=== PATIENT | female | born 1935 | race Hispanic/Latino ===

== ENCOUNTER 2017-11-23 11:44 | Inpatient (IN) | payer BC, MEDICARE ==
[2017-11-23 12:05] VITALS: BMI 25.6
--- NOTE | 2017-11-23 14:49 | PCM.OPOC ---
Physiatry Overall Plan of Care - Overall Plan of Care Estimated Length of Stay in Weeks: 2 Rehab Impairment: Mobility, Gait, Balance, Coordination Etiologic Diagnosis: Cerebrovascular Accident Rehab/Medical Prognosis: Fair - Anticipated Interventions Physical Therapy:: Yes Occupational Therapy:: Yes Recreational Therapy:: Yes - Therapy Goals Bed Mobility: Independent Ambulation: Independent Functional Positional Changes:: Independent - Functional Outcomes Functional Outcomes: fair - Discharge Plan Identification of Barriers to Discharge: Cognition Discharge Destination: Home
--- NOTE | 2017-11-23 15:51 | CP.PCM.CON ---
History of Present Illness - History of Present Illness History of Present Illness: 82 year old female admitted to acute rehab with right sided weakness secondary to CVa with history of Cad, Htn, colitis Review of Systems - Musculoskeletal Musculoskeletal: Abnormal Gait, Limited Range of Motion, Muscle Weakness - Neurological Neurological: Abnormal Gait, Lack of Coordination Past Patient History - Past Social History Smoking Status: Never Smoked - CARDIAC Hx Cardiac Disorders: Yes (with stents x 2) Hx Hypertension: Yes - PULMONARY Hx Respiratory Disorders: No - NEUROLOGICAL Hx Neurological Disorder: No - HEENT Hx HEENT Problems: Yes Other/Comment: eye issues - RENAL Hx Chronic Kidney Disease: No - ENDOCRINE/METABOLIC Hx Endocrine Disorders: No - HEMATOLOGICAL/ONCOLOGICAL Hx Cancer: Yes (breast) - INTEGUMENTARY Hx Dermatological Problems: No - MUSCULOSKELETAL/RHEUMATOLOGICAL Hx Musculoskeletal Disorders: No Hx Falls: No - GASTROINTESTINAL Hx Gastrointestinal Disorders: Yes (Colitis) - GENITOURINARY/GYNECOLOGICAL Hx Genitourinary Disorders: No - PSYCHIATRIC Hx Psychophysiologic Disorder: No Hx Emotional Abuse: No Hx Physical Abuse: No Hx Substance Use: No - SURGICAL HISTORY Hx Surgeries: Yes (Right breast lumpectomy) Hx Coronary Stent: Yes (2 stents) - ANESTHESIA Hx Anesthesia: Yes Hx Anesthesia Reactions: No Hx Malignant Hyperthermia: No Meds Allergies/Adverse Reactions: Allergies Allergy/AdvReac Type Severity Reaction Status Date / Time Penicillins Allergy RASH Verified 11/20/17 20:05 - Medications Medications: Current Medications Aspirin (Ecotrin) 325 mg PO DAILY [facility] Atorvastatin Calcium (Lipitor) 20 mg PO HS [facility] Brimonidine Tartrate (Alphagan 0.2% Opht) 1 drop OU Q8 [facility] Clopidogrel Bisulfate (Plavix) 75 mg PO DAILY [facility] Furosemide (Lasix) 20 mg PO DAILY [facility] Home Med (Netarsudil Mesylate [Rhopressa]) 1 drop OS DAILY [facility] Home Med (Mesalamine [Lialda]) 1.2 gm PO BRK [facility] Insulin Human Regular (Humulin R) 0 units SC [facility] PRN Reason: Protocol Isosorbide Dinitrate (Isordil) 30 mg PO DAILY [facility] Latanoprost (Xalatan Opht) 1 drop OS HS [facility] Metoprolol Tartrate (Lopressor) 25 mg PO Q12 [facility] Physical Exam - Head Exam Head Exam: ATRAUMATIC, NORMAL INSPECTION, NORMOCEPHALIC - Eye Exam Eye Exam: EOMI, Normal appearance, PERRL Pupil Exam: NORMAL ACCOMODATION, PERRL - ENT Exam ENT Exam: Mucous Membranes Moist, Normal Exam - Neck Exam Neck exam: Positive for: Normal Inspection - Respiratory Exam Respiratory Exam: Clear to Auscultation Bilateral, NORMAL BREATHING PATTERN - Cardiovascular Exam Cardiovascular Exam: REGULAR RHYTHM - GI/Abdominal Exam GI & Abdominal Exam: Normal Bowel Sounds - Rectal Exam Rectal Exam: NORMAL INSPECTION - Exam External exam: NORMAL EXTERNAL EXAM - Extremities Exam Extremities exam: Positive for: normal inspection Additional comments: right leg weakness , mild tenderness in the right leg - Back Exam Back exam: NORMAL INSPECTION - Neurological Exam Neurological exam: CN II-XII Intact, Normal Gait, Oriented x3 - Psychiatric Exam Psychiatric exam: Normal Affect, Normal Mood - Skin Skin Exam: Dry, Intact, Normal Color Assessment & Plan (1) Ischemic stroke Assessment and Plan: plan for physical, occupational, rec and speech therapy for cognitive evaluation , range of motion, strengthening transfers and gait training. status post overall plan of care Status: Acute Priority: High (2) Newly diagnosed diabetes Status: Acute (3) TIA (transient ischemic attack) Status: Acute
[2017-11-23] MEDS: Insulin Regular 100 units/ml SC SCH ×2 (17:39→22:15)
--- NOTE | 2017-11-23 18:37 | US ---
Date of service: 11/23/2017 PROCEDURE: Right lower extremity venous duplex Doppler. HISTORY: PAIN AND SWELLING COMPARISON: None available. TECHNIQUE: Common femoral, superficial femoral, popliteal and posterior tibial veins were evaluated. Flow was assessed with color Doppler, compressibility, assessment of phasic flow and augmentation response. FINDINGS: COMMON FEMORAL VEIN: Unremarkable. SUPERFICIAL FEMORAL VEIN: Unremarkable. POPLITEAL VEIN: Unremarkable. POSTERIOR TIBIAL VEIN: Unremarkable. OTHER FINDINGS: None. IMPRESSION: No evidence of deep venous thrombosis in the right lower extremity.
[2017-11-23] MEDS: Brimonidine 0.2% 50 DROP/5 ML BOTTLE OU SCH (21:59)
[2017-11-23] MEDS: Latanoprost 0.005% Opht SOUTION OS SCH (22:11)
[2017-11-24 06:46] LABS: HEMOGLOBIN 14.7 g/dL (12.0-16.0); MEAN CELL VOLUME 94.1 fl (81.0-99.0); MEAN CORPUSCULAR HEMOGLOBIN 32.3 pg (27.0-31.0); MEAN CORPUSCULAR HGB CONC 34.3 g/dL (33.0-37.0); RBC 4.55 Mil/uL (3.80-5.20); RED CELL DISTRIBUTION WIDTH 13.7 % (11.5-14.5); WHITE BLOOD COUNT 7.1 K/uL (4.8-10.8)
[2017-11-24] MEDS: Brimonidine 0.2% 50 DROP/5 ML BOTTLE OU SCH ×3 (06:51→21:19)
[2017-11-24 07:04] LABS: ALB/GLOB RATIO 1.2 (1.0-2.1); ALBUMIN 3.5 g/dL (3.5-5.0); ALT/SGPT 36 U/L (9-52); AST/SGOT 28 U/L (14-36); BLOOD UREA NITROGEN 19 mg/dl (7-17); GFR NON-AFRICAN AMERICAN > 60
[2017-11-24] MEDS: Insulin Regular 100 units/ml SC SCH ×4 (07:45→21:16)
[2017-11-24] MEDS ORDERED: MESALAMINE 2.4 GM PO SCH (08:00)
[2017-11-24] MEDS: Aspirin 325 mg EC Tablets PO SCH (08:36)
[2017-11-24] MEDS: NETARSUDIL MESYLATE OS SCH (08:37)
[2017-11-24] MEDS: MESALAMINE 1.2 GM PO SCH (08:38)
--- NOTE | 2017-11-24 10:04 | CP.PCM.CON ---
History of Present Illness - History of Present Illness History of Present Illness: 82 yo female, with PMHx of CVA and HTN, seen and evaluated for painful, elongated dystrophic nails. She states that she had a stroke earlier in the week and cannot bend down to cut her toenails herself. Her nails have been causing pain in her shoes when she walks and does therapy. Patient ambulating in sneakers and compression socks. She denies any other pedal complaints at this time. Denies N/V/F/CP. PMHx: Pre-diabetic, CVA, HTN Social: Former tobacco use (1992) ALL: PCN Review of Systems - Review of Systems Review of Systems: As per HPI Past Patient History - Past Social History Smoking Status: Never Smoked - CARDIAC Hx Cardiac Disorders: Yes (with stents x 2) Hx Hypertension: Yes - PULMONARY Hx Respiratory Disorders: No - NEUROLOGICAL Hx Neurological Disorder: No - HEENT Hx HEENT Problems: Yes Other/Comment: eye issues - RENAL Hx Chronic Kidney Disease: No - ENDOCRINE/METABOLIC Hx Endocrine Disorders: No - HEMATOLOGICAL/ONCOLOGICAL Hx Cancer: Yes (breast) - INTEGUMENTARY Hx Dermatological Problems: No - MUSCULOSKELETAL/RHEUMATOLOGICAL Hx Musculoskeletal Disorders: No Hx Falls: No - GASTROINTESTINAL Hx Gastrointestinal Disorders: Yes (Colitis) - GENITOURINARY/GYNECOLOGICAL Hx Genitourinary Disorders: No - PSYCHIATRIC Hx Psychophysiologic Disorder: No Hx Emotional Abuse: No Hx Physical Abuse: No Hx Substance Use: No - SURGICAL HISTORY Hx Surgeries: Yes (Right breast lumpectomy) Hx Coronary Stent: Yes (2 stents) - ANESTHESIA Hx Anesthesia: Yes Hx Anesthesia Reactions: No Hx Malignant Hyperthermia: No Meds Allergies/Adverse Reactions: Allergies Allergy/AdvReac Type Severity Reaction Status Date / Time Penicillins Allergy RASH Verified 11/20/17 20:05 - Medications Medications: Current Medications Acetaminophen (Tylenol 325mg Tab) 650 mg PO Q6 PRN PRN Reason: pain scale 1-10 Aspirin (Ecotrin) 325 mg PO DAILY [facility] Last Admin: 11/24/17 08:36 Dose: 325 mg Atorvastatin Calcium (Lipitor) 20 mg PO HS [facility] Last Admin: 11/23/17 22:01 Dose: 20 mg Brimonidine Tartrate (Alphagan 0.2% Opht) 1 drop OU Q8 [facility] Last Admin: 11/24/17 06:51 Dose: 1 drop Clopidogrel Bisulfate (Plavix) 75 mg PO DAILY [facility] Last Admin: 11/24/17 08:37 Dose: 75 mg Furosemide (Lasix) 20 mg PO DAILY [facility] Last Admin: 11/24/17 08:41 Dose: 20 mg Home Med (Netarsudil Mesylate [Rhopressa]) 1 drop OS DAILY [facility] Last Admin: 11/24/17 08:37 Dose: 1 drop Home Med (Mesalamine [Lialda]) 1.2 gm PO BRK [facility] Last Admin: 11/24/17 08:38 Dose: 1.2 gm Insulin Human Regular (Humulin R) 0 units SC ACHS [facility] PRN Reason: Protocol Last Admin: 11/24/17 07:45 Dose: Not Given Isosorbide Dinitrate (Isordil) 30 mg PO DAILY [facility] Last Admin: 11/24/17 08:42 Dose: 30 mg Latanoprost (Xalatan Opht) 1 drop OS HS [facility] Last Admin: 11/23/17 22:11 Dose: 1 drop Metoprolol Tartrate (Lopressor) 25 mg PO Q12 [facility] Last Admin: 11/24/17 08:41 Dose: 25 mg Physical Exam - Constitutional Appears: Well, Non-toxic, No Acute Distress - Head Exam Head Exam: ATRAUMATIC, NORMOCEPHALIC - Extremities Exam Additional comments: Vascular: DP/PT 2/4 bilaterally, CFT <3 seconds to all digits, TG WNL, no edema to bilateral lower extremities Ortho: Pain to palpation of right medial nail border. MMT 4/5 Neuro: Gross and protective sensation intact bilaterally. Derm: Elongated, dystrophic, mycotic nails x10. No interdigital maceration, no open lesions, no erythema, no clinical signs of infection - Neurological Exam Neurological exam: Alert, Oriented x3 - Psychiatric Exam Psychiatric exam: Normal Affect, Normal Mood Results - Vital Signs Recent Vital Signs: Last Vital Signs Temp 98.5 F 11/24/17 08:49 Pulse 74 11/24/17 08:49 Resp 20 11/24/17 08:49 BP 157/80 H 11/24/17 08:49 Pulse Ox 97 11/24/17 08:49 - Labs Result Diagrams: 11/24/17 05:20 11/24/17 05:20 Labs: Laboratory Results - last 24 hr 08/11/23/17 11/24/17 16:23 21:35 05:20 WBC 7.1 RBC 4.55 Hgb 14.7 Hct 42.8 MCV 94.1 MCH 32.3 H MCHC 34.3 RDW 13.7 Plt Count 264 PT INR Sodium Potassium Chloride Carbon Dioxide Anion Gap BUN Creatinine Est GFR ( Amer) Est GFR (Non-Af Amer) POC Glucose (mg/dL) 130 H 130 H Random Glucose Calcium Total Bilirubin AST ALT Alkaline Phosphatase Total Protein Albumin Globulin Albumin/Globulin Ratio Vitamin B12 TSH 3rd Generation 11/24/17 11/24/17 11/24/17 05:20 05:20 06:56 WBC RBC Hgb Hct MCV MCH MCHC RDW Plt Count PT 11.0 INR 1.0 Sodium 139 Potassium 4.0 Chloride 107 Carbon Dioxide 24 Anion Gap 12 BUN 19 H Creatinine 0.7 Est GFR ( Amer) > 60 Est GFR (Non-Af Amer) > 60 POC Glucose (mg/dL) 123 H Random Glucose 124 H Calcium 9.0 Total Bilirubin 0.8 AST 28 ALT 36 Alkaline Phosphatase 56 Total Protein 6.4 Albumin 3.5 Globulin 2.9 Albumin/Globulin Ratio 1.2 Vitamin B12 915 TSH 3rd Generation 1.10 Assessment & Plan - Assessment and Plan (Free Text) Assessment: 82 yo female seen and evaluated for painful, elongated dystrophic nails. Plan: Patient seen and evaluated with all questions and concerns addressed Patient discussed in detail with Dr. Meyer Nails debrided with a large nail nipper x10 without incident Podiatry to s/o at this time; please reconsult as needed Thank you for the consult and allowing us to partake in the care of this patient - Date & Time Date: 11/24/17 Time: 10:37
--- NOTE | 2017-11-24 12:27 | PSY.TMCNF ---
Nursing - Vital Signs Vital Signs (Last 8 hours): Vital Signs 11/24/17 11/24/17 11/24/17 08:41 08:49 08:50 Temperature 98.5 F Pulse Rate 74 74 94 H Respiratory 20 Rate Blood Pressure 157/80 H 157/80 H O2 Sat by Pulse 97 Oximetry Pain: 0 - Medications/Other Issues Comment: To follow as per nutriton protocol - Bladder Management Bladder Pattern: Frequency Voiding Method: Toilet, Diaper - Bowel Management Bowel Pattern: Normal Physical Therapy - Transfers Sit to Stand: Verbal Cues, Contact Guard - Ambulation Level of Assistance: Verbal Cues, Contact Guard, Minimal Assistance Distance (ft.): 100 Assistive Devices: N/A, Single point cane - Stair Negotiation Stairs: Level of Assistance: Verbal Cues, Minimal Assistance Number of Stairs: 2 Stairs: Assistive Devices: Left Handrail, Right Handrail - Standing Balance Static Stand: Contact Guard Assist Dynamic Stand: Contact Guard Assist, Minimal Assistance - Provider Therapist: M License Number: 4 Occupational Therapy - Arousal/Attention/Orientation Patient Orientation: Person, Place, Time, Appropriate to Age, Appropriate to Situation Nutrition - Current Diet Current Diet/ Supplement/ Feedings: Moderate consistent CHO 2 gram Na diet - Appetite Percent Meal Consumed: 75-100% - Assessment/Goals/Time Frame Assessment/Goals/Time Frame: To follow as per nutriton protocol - Provider Provider: Denise Deleon RD Case Management - Discharge Plan Discharge Plan: Home with significant other/family Rehabilitation Plan - Treatment Plan Treatment Plan: Physical Therapy, Occupational Therapy, Dietary, Patient/Family Education - Recommendation Recommendation: Physical Therapy, Occupational Therapy, Dietary, Patient/Family Education - Discharge Plan Discharge to: Home
--- NOTE | 2017-11-24 14:04 | CP.PCM.PN ---
Subjective - Date & Time of Evaluation Date of Evaluation: 11/24/17 Time of Evaluation: 12:00 - Subjective Subjective: no acute complaints at present Objective - Vital Signs/Intake and Output Vital Signs (last 24 hours): Temp Pulse Resp BP Pulse Ox 98.5 F 94 H 20 157/80 H 97 11/24/17 08:49 11/24/17 08:50 11/24/17 08:49 11/24/17 08:49 11/24/17 08:49 - Medications Medications: Current Medications Acetaminophen (Tylenol 325mg Tab) 650 mg PO Q6 PRN PRN Reason: pain scale 1-10 Aspirin (Ecotrin) 325 mg PO DAILY [facility] Last Admin: 11/24/17 08:36 Dose: 325 mg Atorvastatin Calcium (Lipitor) 20 mg PO HS [facility] Last Admin: 11/23/17 22:01 Dose: 20 mg Brimonidine Tartrate (Alphagan 0.2% Opht) 1 drop OU Q8 [facility] Last Admin: 11/24/17 13:06 Dose: 1 drop Clopidogrel Bisulfate (Plavix) 75 mg PO DAILY [facility] Last Admin: 11/24/17 08:37 Dose: 75 mg Furosemide (Lasix) 20 mg PO DAILY [facility] Last Admin: 11/24/17 08:41 Dose: 20 mg Home Med (Netarsudil Mesylate [Rhopressa]) 1 drop OS DAILY [facility] Last Admin: 11/24/17 08:37 Dose: 1 drop Home Med (Mesalamine [Lialda]) 1.2 gm PO BRK [facility] Last Admin: 11/24/17 08:38 Dose: 1.2 gm Insulin Human Regular (Humulin R) 0 units SC ACHS [facility] PRN Reason: Protocol Last Admin: 11/24/17 12:05 Dose: Not Given Isosorbide Dinitrate (Isordil) 30 mg PO DAILY [facility] Last Admin: 11/24/17 08:42 Dose: 30 mg Latanoprost (Xalatan Opht) 1 drop OS HS [facility] Last Admin: 11/23/17 22:11 Dose: 1 drop Metoprolol Tartrate (Lopressor) 25 mg PO Q12 [facility] Last Admin: 11/24/17 08:41 Dose: 25 mg Pantoprazole Sodium (Protonix Ec Tab) 40 mg PO DAILY [facility] - Labs Labs: 11/24/17 05:20 11/24/17 05:20 PT 11.0 Seconds (9.8-13.1) 11/24/17 05:20 INR 1.0 11/24/17 05:20 - Head Exam Head Exam: ATRAUMATIC, NORMAL INSPECTION, NORMOCEPHALIC - Eye Exam Eye Exam: EOMI, Normal appearance, PERRL Pupil Exam: NORMAL ACCOMODATION - ENT Exam ENT Exam: Mucous Membranes Moist, Normal Exam - Neck Exam Neck Exam: Full ROM, Normal Inspection - Respiratory Exam Respiratory Exam: NORMAL BREATHING PATTERN - Cardiovascular Exam Cardiovascular Exam: REGULAR RHYTHM - GI/Abdominal Exam GI & Abdominal Exam: Soft, Normal Bowel Sounds - Rectal Exam Rectal Exam: NORMAL INSPECTION - Exam External exam: NORMAL EXTERNAL EXAM - Extremities Exam Extremities Exam: Full ROM, Normal Capillary Refill - Back Exam Back Exam: NORMAL INSPECTION - Neurological Exam Neurological Exam: Alert, Awake - Psychiatric Exam Psychiatric exam: Normal Affect, Normal Mood - Skin Skin Exam: Dry, Intact, Normal Color Assessment and Plan (1) Ischemic stroke Assessment & Plan: plan fo rpt, ot, rec therapy duplex scam negative dc planning Status: Acute (2) Newly diagnosed diabetes Status: Acute (3) TIA (transient ischemic attack) Status: Acute
--- NOTE | 2017-11-24 19:23 | CP.PCM.HP ---
History of Present Illness - History of Present Illness History of Present Illness: CC: Left Sided Weakness HPI: An 82-year-old woman with a past medical history of hypertension, breast cancer , colitis, facial nerve palsy, and CAD (s/p 2 stents), who presented to the ED with complaints of slurred speech that started the morning of Presentation to the ER. Her symptoms were improving when she presented and did not require tPA. Her initial NIHSS was 2. MRI of the brain was consistent with a small left mid-pontine acute Ischemic stroke. 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 Patient was sent to [facility] for Acute Rehab with Occupationa and Physical therapy. During the Work Up for ACute CAv, 2D echo showed Wall Motion Abnormalities and Cardiomyopathy. patient is in BB but offered DIDIER Inhibitor but patient declined until her Nursing Program Coordinator of 20years approved. Nursing Program Coordinator from [facility] facility consulted. Present on Admission - Present on Admission Any Indicators Present on Admission: Yes Review of Systems - Review of Systems All systems: reviewed and no additional remarkable complaints except Review of Systems: As Per HPI Past Patient History - Past Medical History & Family History Past Medical History?: Yes Past Family History: Reviewed and not pertinent - Past Social History Smoking Status: Never Smoked Alcohol: None Drugs: Denies - CARDIAC Hx Cardiac Disorders: Yes Hx Hypertension: Yes - PULMONARY Hx Respiratory Disorders: No - NEUROLOGICAL Hx Neurological Disorder: No - HEENT Hx HEENT Problems: Yes Other/Comment: eye issues - RENAL Hx Chronic Kidney Disease: No - ENDOCRINE/METABOLIC Hx Endocrine Disorders: No - HEMATOLOGICAL/ONCOLOGICAL Hx Cancer: Yes (breast) - INTEGUMENTARY Hx Dermatological Problems: No - MUSCULOSKELETAL/RHEUMATOLOGICAL Hx Musculoskeletal Disorders: No Hx Falls: No - GASTROINTESTINAL Hx Gastrointestinal Disorders: Yes (Colitis) - GENITOURINARY/GYNECOLOGICAL Hx Genitourinary Disorders: No - PSYCHIATRIC Hx Psychophysiologic Disorder: No Hx Emotional Abuse: No Hx Physical Abuse: No Hx Substance Use: No - SURGICAL HISTORY Hx Surgeries: Yes (Right breast lumpectomy) Hx Coronary Stent: Yes (2 stents) - ANESTHESIA Hx Anesthesia: Yes Hx Anesthesia Reactions: No Hx Malignant Hyperthermia: No Meds Allergies/Adverse Reactions: Allergies Allergy/AdvReac Type Severity Reaction Status Date / Time Penicillins Allergy RASH Verified 11/20/17 20:05 Physical Exam - Constitutional Appears: Well, No Acute Distress - Head Exam Head Exam: ATRAUMATIC, NORMAL INSPECTION, NORMOCEPHALIC - Eye Exam Eye Exam: EOMI, Normal appearance, PERRL Pupil Exam: NORMAL ACCOMODATION, PERRL - ENT Exam ENT Exam: Mucous Membranes Moist, Normal Exam - Neck Exam Neck exam: Positive for: Normal Inspection - Respiratory Exam Respiratory Exam: Clear to Auscultation Bilateral, NORMAL BREATHING PATTERN - Cardiovascular Exam Cardiovascular Exam: REGULAR RHYTHM, +S1, +S2 - GI/Abdominal Exam GI & Abdominal Exam: Normal Bowel Sounds, Soft. absent: Tenderness - Extremities Exam Extremities exam: Positive for: normal capillary refill - Back Exam Back exam: NORMAL INSPECTION - Neurological Exam Neurological exam: Abnormal Gait, Alert, CN II-XII Intact, Motor Sensory Deficit , Normal Gait, Oriented x3, Reflexes Normal Additional comments: Right Extremities Power 4/5 - Psychiatric Exam Psychiatric exam: Normal Affect, Normal Mood - Skin Skin Exam: Dry, Intact, Normal Color, Warm Results - Vital Signs Recent Vital Signs: Last Vital Signs Temp 98.5 F 11/24/17 08:49 Pulse 94 H 11/24/17 08:50 Resp 20 11/24/17 08:49 BP 157/80 H 11/24/17 08:49 Pulse Ox 97 11/24/17 08:49 - Labs Result Diagrams: 11/24/17 05:20 11/24/17 05:20 Labs: Laboratory Results - last 24 hr 11/23/17 11/24/17 11/24/17 21:35 05:20 05:20 WBC 7.1 RBC 4.55 Hgb 14.7 Hct 42.8 MCV 94.1 MCH 32.3 H MCHC 34.3 RDW 13.7 Plt Count 264 PT INR Sodium 139 Potassium 4.0 Chloride 107 Carbon Dioxide 24 Anion Gap 12 BUN 19 H Creatinine 0.7 Est GFR ( Amer) > 60 Est GFR (Non-Af Amer) > 60 POC Glucose (mg/dL) 130 H Random Glucose 124 H Calcium 9.0 Total Bilirubin 0.8 AST 28 ALT 36 Alkaline Phosphatase 56 Total Protein 6.4 Albumin 3.5 Globulin 2.9 Albumin/Globulin Ratio 1.2 Vitamin B12 915 TSH 3rd Generation 1.10 11/24/17 11/24/17 11/24/17 05:20 06:56 17:27 WBC RBC Hgb Hct MCV MCH MCHC RDW Plt Count PT 11.0 INR 1.0 Sodium Potassium Chloride Carbon Dioxide Anion Gap BUN Creatinine Est GFR ( Amer) Est GFR (Non-Af Amer) POC Glucose (mg/dL) 123 H 144 H Random Glucose Calcium Total Bilirubin AST ALT Alkaline Phosphatase Total Protein Albumin Globulin Albumin/Globulin Ratio Vitamin B12 TSH 3rd Generation - Imaging and Cardiology MRI - head Status: Report reviewed by me Additional comment: MRI BRAIN WITHOUT CONTRAST HISTORY: r/o CVA COMPARISON: Comparison made with prior CT scan of the brain 02/2018. TECHNIQUE: Multiplanar, multisequence MR images of the brain were obtained without intravenous contrast enhancement. FINDINGS: HEMORRHAGE: No acute parenchymal, subarachnoid nor extra-axial hemorrhage. No evidence of hemosiderin deposition is identified on gradient echo weighted sequence. DWI: There is a small elliptical shaped acute infarct in the left parasagittal midpons BRAIN PARENCHYMA: Mild -moderate diffuse/ confluent chronic periventricular white matter ischemic changes extending peripherally into the deep and subcortical white matter both cerebral hemispheres as well as multiple more discrete chronic appearing lacunar type infarcts scattered about deep and subcortical white matter, both basal nuclei and both cerebellar hemispheres also seen to better advantage on the current exam. There also appear to be a 1 or 2 tiny chronic appearing right- sided pontine lacunar type infarcts. Moderate generalized volume loss. VENTRICLES: No obstructive hydrocephalus. CRANIUM: Unremarkable. ORBITS: Orbits and contents grossly unremarkable. PARANASAL SINUSES/MASTOIDS: Clear VASCULAR SYSTEM: Visualized major vascular flow voids at skull base patent. OTHER FINDINGS: None. IMPRESSION: Small elliptical shaped acute infarct left mid albaro. Mild -moderate diffuse/ confluent chronic periventricular white matter ischemic changes extending peripherally into the deep and subcortical white matter both cerebral hemispheres as well as multiple more discrete chronic appearing lacunar type infarcts scattered about deep and subcortical white matter, both basal nuclei and both cerebellar hemispheres also seen to better advantage on the current exam. There also appear to be a 1 or 2 tiny chronic appearing right-sided pontine lacunar type infarcts. Moderate generalized volume loss. No acute intracranial hemorrhage. 2 [facility] Nurse Amy informed these findings at approximately 2:20 p.m. with written down and read back verification. Echocardiogram Additional comment: Done on 11/22/2017: Mild to Moderate Concentric LVH Proximal Septal Thickening Noted The Systolic Function is mederately Impaired EF 25-30% Assessment & Plan (1) Ischemic stroke Assessment and Plan: Continue Plavix/Statin PT/OT Syrup Maker Cook Consulted Status: Acute Priority: High (2) HTN (hypertension) Status: Chronic Priority: Low (3) CAD (coronary artery disease) Assessment and Plan: Ischemic Cardiomyopathy Continue Statin and BB Offered ARB or ACEI but patient Refused Attempted to reach her Nursing Program Coordinator Dr. Dupont but the covering Nursing Program Coordinator responded but does not know the patient well and her buffing machine operator semiautomatic will make the decision as an outpatient if patient refuses. so losartan started and D/c Cardiology Consult with . Status: Chronic Priority: Low (4) Newly diagnosed diabetes Status: Chronic Priority: Low
[2017-11-24] MEDS: Latanoprost 0.005% Opht SOUTION OS SCH (21:20)
[2017-11-25] MEDS: Brimonidine 0.2% 50 DROP/5 ML BOTTLE OU SCH ×3 (07:07→21:34)
[2017-11-25] MEDS: Insulin Regular 100 units/ml SC SCH ×4 (07:07→21:30)
[2017-11-25] MEDS: Aspirin 325 mg EC Tablets PO SCH (08:44)
[2017-11-25] MEDS: Pantoprazole 40 mg EC Tab PO SCH (08:44)
[2017-11-25] MEDS: NETARSUDIL MESYLATE OS SCH (08:45)
[2017-11-25] MEDS: MESALAMINE 1.2 GM PO SCH (08:45)
--- NOTE | 2017-11-25 09:28 | CP.PCM.CON ---
History of Present Illness - History of Present Illness History of Present Illness: Ms. Prather is a 82-year-old woman with a past medical history of hypertension, breast cancer, colitis, facial nerve palsy, and CAD (s/p 2 stents) , who presented to the ED on 11/21/2017 with complaints of slurred speech, while in the hospital her symptoms improved. Her initial NIHSS was 2. She was not a candidate for IV tPA upon admission. Initial CT scan of the head did not show any acute findings. MRI of the brain was consistent with a small left mid- pontine acute ischemic stroke. 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 She was stabilized and transferred to acute rehab. Currently, she is receiving PT/OT and speech therapy. Past Patient History - Past Social History Smoking Status: Never Smoked - CARDIAC Hx Cardiac Disorders: Yes Hx Hypertension: Yes - PULMONARY Hx Respiratory Disorders: No - NEUROLOGICAL Hx Neurological Disorder: No - HEENT Hx HEENT Problems: Yes Other/Comment: eye issues - RENAL Hx Chronic Kidney Disease: No - ENDOCRINE/METABOLIC Hx Endocrine Disorders: No - HEMATOLOGICAL/ONCOLOGICAL Hx Cancer: Yes (breast) - INTEGUMENTARY Hx Dermatological Problems: No - MUSCULOSKELETAL/RHEUMATOLOGICAL Hx Musculoskeletal Disorders: No Hx Falls: No - GASTROINTESTINAL Hx Gastrointestinal Disorders: Yes (Colitis) - GENITOURINARY/GYNECOLOGICAL Hx Genitourinary Disorders: No - PSYCHIATRIC Hx Psychophysiologic Disorder: No Hx Emotional Abuse: No Hx Physical Abuse: No Hx Substance Use: No - SURGICAL HISTORY Hx Surgeries: Yes (Right breast lumpectomy) Hx Coronary Stent: Yes (2 stents) - ANESTHESIA Hx Anesthesia: Yes Hx Anesthesia Reactions: No Hx Malignant Hyperthermia: No Meds Allergies/Adverse Reactions: Allergies Allergy/AdvReac Type Severity Reaction Status Date / Time Penicillins Allergy RASH Verified 11/20/17 20:05 - Medications Medications: Current Medications Acetaminophen (Tylenol 325mg Tab) 650 mg PO Q6 PRN PRN Reason: pain scale 1-10 Aspirin (Ecotrin) 325 mg PO DAILY [facility] Last Admin: 11/25/17 08:44 Dose: 325 mg Atorvastatin Calcium (Lipitor) 20 mg PO HS [facility] Last Admin: 11/24/17 21:19 Dose: 20 mg Brimonidine Tartrate (Alphagan 0.2% Opht) 1 drop OU Q8 [facility] Last Admin: 11/25/17 07:07 Dose: 1 drop Clopidogrel Bisulfate (Plavix) 75 mg PO DAILY [facility] Last Admin: 11/25/17 08:45 Dose: 75 mg Furosemide (Lasix) 20 mg PO DAILY [facility] Last Admin: 11/25/17 08:44 Dose: 20 mg Home Med (Netarsudil Mesylate [Rhopressa]) 1 drop OS DAILY [facility] Last Admin: 11/25/17 08:45 Dose: 1 drop Home Med (Mesalamine [Lialda]) 1.2 gm PO BRK [facility] Last Admin: 11/25/17 08:45 Dose: 1.2 gm Insulin Human Regular (Humulin R) 0 units SC [facility] PRN Reason: Protocol Last Admin: 11/25/17 07:07 Dose: Not Given Isosorbide Dinitrate (Isordil) 30 mg PO DAILY [facility] Last Admin: 11/25/17 08:44 Dose: 30 mg Latanoprost (Xalatan Opht) 1 drop OS HS [facility] Last Admin: 11/24/17 21:20 Dose: 1 drop Losartan Potassium (Cozaar) 25 mg PO DAILY [facility] Last Admin: 11/25/17 08:41 Dose: Not Given Metoprolol Tartrate (Lopressor) 25 mg PO Q12 [facility] Last Admin: 11/25/17 08:45 Dose: 25 mg Pantoprazole Sodium (Protonix Ec Tab) 40 mg PO DAILY [facility] Last Admin: 11/25/17 08:44 Dose: 40 mg Physical Exam - Constitutional Appears: No Acute Distress - Head Exam Head Exam: NORMAL INSPECTION - Eye Exam Eye Exam: EOMI, Normal appearance, PERRL Pupil Exam: PERRL - ENT Exam ENT Exam: Mucous Membranes Moist - Neck Exam Neck exam: Positive for: Normal Inspection - Respiratory Exam Respiratory Exam: Clear to Auscultation Bilateral, NORMAL BREATHING PATTERN - Cardiovascular Exam Cardiovascular Exam: REGULAR RHYTHM - GI/Abdominal Exam GI & Abdominal Exam: Normal Bowel Sounds, Soft. absent: Tenderness - Extremities Exam Extremities exam: Positive for: normal inspection Additional comments: weak lower extremities - Neurological Exam Neurological exam: Alert, CN II-XII Intact, Oriented x3, Reflexes Normal - Expanded Neurological Exam Expanded Patient oriented to: person, place, time Speech: Slurred Speech (minimally) Cranial nerves: EOM's Intact: Normal, Facial Palsey w/o Forehead Movement: Normal, Facial Sensation: Normal, Gag Reflex: Normal, Nystagmus: Normal, Tongue Deviation: Normal Cerebellar Function: Finger to Nose: Normal, Heel to Miller: Normal Upper motor neuron: Babinski Sign: Normal, Quincy Neglect: Normal, Pronator Drift : Normal Sensory exam: Lower Extremity 2 Point Discrimination: Normal, Lower Extremity Light Touch: Normal, Lower Extremity Pin Prick: Normal, Lower Extremity Temperature: Normal, Upper Extremity 2 Point Discrimination: Normal, Upper Extremity Light Touch: Normal, Upper Extremity Pin Prick: Normal, Upper Extremity Temperature: Normal Neuro motor strength exam: Left Upper Extremity: 5, Right Upper Extremity: 4, Left Lower Extremity: 4, Right Lower Extremity: 4 Results - Vital Signs Recent Vital Signs: Last Vital Signs Temp 97.5 F L 11/24/17 19:54 Pulse 85 11/25/17 08:45 Resp 20 11/24/17 19:54 BP 127/65 11/25/17 08:45 Pulse Ox 99 11/24/17 19:54 - Labs Result Diagrams: 11/24/17 05:20 11/24/17 05:20 Labs: Laboratory Results - last 24 hr 11/24/17 11/24/17 11/25/17 17:27 21:03 06:26 POC Glucose (mg/dL) 144 H 110 110 Assessment & Plan (1) Ischemic stroke Assessment and Plan: 82-year-old woman with a past medical history of hypertension, breast cancer, colitis, facial nerve palsy, and CAD (s/p 2 stents), who presented to the ED on 11/21/2017 with complaints of slurred speech, while in the hospital her symptoms improved. Case discussed with Dr. Ruiz, recommend the following 1. PT/OT, STeval and treatment 2. Blood pressure and glycemic control, hydration 3. Continue aspirin 325 mg PO daily and plavix 75 mg PO daily 4. Continue statin of lipitor 20 mg PO daily to keep her LDL < 70. 5. Case management consult. Thank you Status: Acute Priority: High
--- NOTE | 2017-11-25 21:30 | CP.PCM.CON ---
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 Jo from [place] [facility] who recently had a acute CVA she was talking on the phone with 1 of her daughters in [place] who noted that her speech is somewhat gargled the subsequent day she was talking to another daughter in [place] who called the EMS and brought her to the emergency room at [facility] where she was diagnosed with a new onset CVA/TIA. She has known history of coronary artery disease had an acute myocardial infarction in her 20s which she attributes was told to her was a combination of smoking and oral contraceptive therapy subsequently 20 years data back in late she 89 to be precise had a recurrent acute myocardial infarction at which time she had [address] Jo she was initiated on Plavix after her recent acute CVA has been maintained on beta-blockers statins and arms. She was seen by Dr. Jo about 6 months ago at which time she had ischemic evaluation according to her remains clinically asymptomatic with no active ischemic's ongoing symptoms of coronary artery disease. Review of Systems - Review of Systems Systems not reviewed;Unavailable: Acuity of Condition - Constitutional Constitutional: As Per HPI - EENT Eyes: As Per HPI Ears: As Per HPI Nose/Mouth/Throat: As Per HPI - Breasts Breasts: As Per HPI - Cardiovascular Cardiovascular: As Per HPI - Respiratory Respiratory: As Per HPI - Gastrointestinal Gastrointestinal: As Per HPI - Genitourinary Genitourinary: As Per HPI - Reproductive: Female Reproductive:Female: As Per HPI - Menstruation Menstruation: As Per HPI - Musculoskeletal Musculoskeletal: As Per HPI - Integumentary Integumentary: As Per HPI - Neurological Neurological: As Per HPI - Psychiatric Psychiatric: As Per HPI - Endocrine Endocrine: As Per HPI - Hematologic/Lymphatic Hematologic: As Per HPI Past Patient History - Past Social History Smoking Status: Never Smoked - CARDIAC Hx Cardiac Disorders: Yes Hx Hypertension: Yes - PULMONARY Hx Respiratory Disorders: No - NEUROLOGICAL Hx Neurological Disorder: No - HEENT Hx HEENT Problems: Yes Other/Comment: eye issues - RENAL Hx Chronic Kidney Disease: No - ENDOCRINE/METABOLIC Hx Endocrine Disorders: No - HEMATOLOGICAL/ONCOLOGICAL Hx Cancer: Yes (breast) - INTEGUMENTARY Hx Dermatological Problems: No - MUSCULOSKELETAL/RHEUMATOLOGICAL Hx Musculoskeletal Disorders: No Hx Falls: No - GASTROINTESTINAL Hx Gastrointestinal Disorders: Yes (Colitis) - GENITOURINARY/GYNECOLOGICAL Hx Genitourinary Disorders: No - PSYCHIATRIC Hx Psychophysiologic Disorder: No Hx Emotional Abuse: No Hx Physical Abuse: No Hx Substance Use: No - SURGICAL HISTORY Hx Surgeries: Yes (Right breast lumpectomy) Hx Coronary Stent: Yes (2 stents) - ANESTHESIA Hx Anesthesia: Yes Hx Anesthesia Reactions: No Hx Malignant Hyperthermia: No Meds Allergies/Adverse Reactions: Allergies Allergy/AdvReac Type Severity Reaction Status Date / Time Penicillins Allergy RASH Verified 11/20/17 20:05 - Medications Medications: Current Medications Acetaminophen (Tylenol 325mg Tab) 650 mg PO Q6 PRN PRN Reason: pain scale 1-10 Aspirin (Ecotrin) 325 mg PO DAILY [facility] Last Admin: 11/25/17 08:44 Dose: 325 mg Atorvastatin Calcium (Lipitor) 20 mg PO HS [facility] Last Admin: 11/24/17 21:19 Dose: 20 mg Brimonidine Tartrate (Alphagan 0.2% Opht) 1 drop OU Q8 [facility] Last Admin: 11/25/17 13:51 Dose: 1 drop Clopidogrel Bisulfate (Plavix) 75 mg PO DAILY [facility] Last Admin: 11/25/17 08:45 Dose: 75 mg Furosemide (Lasix) 20 mg PO DAILY [facility] Last Admin: 11/25/17 08:44 Dose: 20 mg Home Med (Netarsudil Mesylate [Rhopressa]) 1 drop OS DAILY [facility] Last Admin: 11/25/17 08:45 Dose: 1 drop Home Med (Mesalamine [Lialda]) 1.2 gm PO BRK [facility] Last Admin: 11/25/17 08:45 Dose: 1.2 gm Insulin Human Regular (Humulin R) 0 units SC ACHS [facility] PRN Reason: Protocol Last Admin: 11/25/17 16:42 Dose: Not Given Isosorbide Dinitrate (Isordil) 30 mg PO DAILY [facility] Last Admin: 11/25/17 08:44 Dose: 30 mg Latanoprost (Xalatan Opht) 1 drop OS HS [facility] Last Admin: 11/24/17 21:20 Dose: 1 drop Losartan Potassium (Cozaar) 25 mg PO DAILY [facility] Last Admin: 11/25/17 08:41 Dose: Not Given Metoprolol Tartrate (Lopressor) 25 mg PO Q12 [facility] Last Admin: 11/25/17 08:45 Dose: 25 mg Pantoprazole Sodium (Protonix Ec Tab) 40 mg PO DAILY [facility] Last Admin: 11/25/17 08:44 Dose: 40 mg Physical Exam - Constitutional Appears: Well - Head Exam Head Exam: ATRAUMATIC, NORMAL INSPECTION, NORMOCEPHALIC - Eye Exam Eye Exam: EOMI, Normal appearance, PERRL Pupil Exam: NORMAL ACCOMODATION, PERRL - ENT Exam ENT Exam: Mucous Membranes Moist, Normal Exam - Neck Exam Neck exam: Positive for: Normal Inspection - Respiratory Exam Respiratory Exam: Clear to Auscultation Bilateral, NORMAL BREATHING PATTERN - Cardiovascular Exam Cardiovascular Exam: REGULAR RHYTHM - GI/Abdominal Exam GI & Abdominal Exam: Normal Bowel Sounds, Soft. absent: Tenderness - Rectal Exam Rectal Exam: NORMAL INSPECTION - Exam Exam: Circumcision, NORMAL INSPECTION External exam: NORMAL EXTERNAL EXAM Speculum exam: NORMAL SPECULUM EXAM Bimanual exam: NORMAL BIMANUAL EXAM - Extremities Exam Extremities exam: Positive for: normal inspection - Back Exam Back exam: NORMAL INSPECTION - Neurological Exam Neurological exam: Alert, CN II-XII Intact, Normal Gait, Oriented x3, Reflexes Normal - Psychiatric Exam Psychiatric exam: Normal Affect, Normal Mood - Skin Skin Exam: Dry, Intact, Normal Color, Warm Results - Vital Signs Recent Vital Signs: Last Vital Signs Temp 97.9 F 11/25/17 20:09 Pulse 67 11/25/17 20:09 Resp 18 11/25/17 20:09 BP 135/63 11/25/17 20:09 Pulse Ox 99 11/25/17 20:09 - Labs Result Diagrams: 11/24/17 05:20 11/24/17 05:20 Labs: Laboratory Results - last 24 hr 11/24/17 11/25/17 11/25/17 21:03 06:26 12:03 POC Glucose (mg/dL) 110 110 127 H 11/25/17 16:38 POC Glucose (mg/dL) 96 Assessment & Plan (1) CAD (coronary artery disease) Assessment and Plan: hx of stents done in 1996 followed by from [facility] clinically stable with no ischemic sx recent evalatuion done by at [facility] was -ve according to her cont dapt cont statins cont bb Status: Chronic (2) HTN (hypertension) Assessment and Plan: cont bb and arb Status: Acute (3) Ischemic stroke Assessment and Plan: etiology ? thromboembolic vs ischemic will discuss with neurology if needs further evaluation no arrhythmias as per hx Status: Acute Priority: High (4) TIA (transient ischemic attack) Status: Acute
[2017-11-25] MEDS: Latanoprost 0.005% Opht SOUTION OS SCH (21:37)
--- NOTE | 2017-11-26 04:49 | CP.PCM.PN ---
Subjective - Date & Time of Evaluation Date of Evaluation: 11/25/17 Time of Evaluation: 22:40 Objective - Vital Signs/Intake and Output Vital Signs (last 24 hours): Temp Pulse Resp BP Pulse Ox 97.9 F 80 18 142/64 99 11/25/17 20:09 11/25/17 21:33 11/25/17 20:09 11/25/17 21:33 11/25/17 20:09 - Medications Medications: Current Medications Acetaminophen (Tylenol 325mg Tab) 650 mg PO Q6 PRN PRN Reason: pain scale 1-10 Aspirin (Ecotrin) 325 mg PO DAILY [facility] Last Admin: 11/25/17 08:44 Dose: 325 mg Atorvastatin Calcium (Lipitor) 20 mg PO HS [facility] Last Admin: 11/25/17 21:33 Dose: 20 mg Brimonidine Tartrate (Alphagan 0.2% Opht) 1 drop OU Q8 [facility] Last Admin: 11/25/17 21:34 Dose: 1 drop Clopidogrel Bisulfate (Plavix) 75 mg PO DAILY [facility] Last Admin: 11/25/17 08:45 Dose: 75 mg Furosemide (Lasix) 20 mg PO DAILY [facility] Last Admin: 11/25/17 08:44 Dose: 20 mg Home Med (Netarsudil Mesylate [Rhopressa]) 1 drop OS DAILY [facility] Last Admin: 11/25/17 08:45 Dose: 1 drop Home Med (Mesalamine [Lialda]) 1.2 gm PO BRK [facility] Last Admin: 11/25/17 08:45 Dose: 1.2 gm Insulin Human Regular (Humulin R) 0 units SC ACHS [facility] PRN Reason: Protocol Last Admin: 11/25/17 21:30 Dose: Not Given Isosorbide Dinitrate (Isordil) 30 mg PO DAILY [facility] Last Admin: 11/25/17 08:44 Dose: 30 mg Latanoprost (Xalatan Opht) 1 drop OS HS [facility] Last Admin: 11/25/17 21:37 Dose: 1 drop Losartan Potassium (Cozaar) 25 mg PO DAILY [facility] Last Admin: 11/25/17 08:41 Dose: Not Given Metoprolol Tartrate (Lopressor) 25 mg PO Q12 [facility] Last Admin: 11/25/17 21:33 Dose: 25 mg Pantoprazole Sodium (Protonix Ec Tab) 40 mg PO DAILY [facility] Last Admin: 11/25/17 08:44 Dose: 40 mg - Labs Labs: 11/24/17 05:20 11/24/17 05:20 PT 11.0 Seconds (9.8-13.1) 11/24/17 05:20 INR 1.0 11/24/17 05:20
[2017-11-26] MEDS: Brimonidine 0.2% 50 DROP/5 ML BOTTLE OU SCH ×3 (05:19→21:46)
--- NOTE | 2017-11-26 06:42 | CP.PCM.PN ---
Subjective - Date & Time of Evaluation Date of Evaluation: 11/26/17 Time of Evaluation: 17:43 - Subjective Subjective: no events overnight Objective - Vital Signs/Intake and Output Vital Signs (last 24 hours): Temp Pulse Resp BP Pulse Ox 97.9 F 80 18 142/64 99 11/25/17 20:09 11/25/17 21:33 11/25/17 20:09 11/25/17 21:33 11/25/17 20:09 - Medications Medications: Current Medications Acetaminophen (Tylenol 325mg Tab) 650 mg PO Q6 PRN PRN Reason: pain scale 1-10 Aspirin (Ecotrin) 325 mg PO DAILY [facility] Last Admin: 11/25/17 08:44 Dose: 325 mg Atorvastatin Calcium (Lipitor) 20 mg PO HS [facility] Last Admin: 11/25/17 21:33 Dose: 20 mg Brimonidine Tartrate (Alphagan 0.2% Opht) 1 drop OU Q8 [facility] Last Admin: 11/26/17 05:19 Dose: 1 drop Clopidogrel Bisulfate (Plavix) 75 mg PO DAILY [facility] Last Admin: 11/25/17 08:45 Dose: 75 mg Furosemide (Lasix) 20 mg PO DAILY [facility] Last Admin: 11/25/17 08:44 Dose: 20 mg Home Med (Netarsudil Mesylate [Rhopressa]) 1 drop OS DAILY [facility] Last Admin: 11/25/17 08:45 Dose: 1 drop Home Med (Mesalamine [Lialda]) 1.2 gm PO BRK [facility] Last Admin: 11/25/17 08:45 Dose: 1.2 gm Insulin Human Regular (Humulin R) 0 units SC [facility] PRN Reason: Protocol Last Admin: 11/25/17 21:30 Dose: Not Given Isosorbide Dinitrate (Isordil) 30 mg PO DAILY [facility] Last Admin: 11/25/17 08:44 Dose: 30 mg Latanoprost (Xalatan Opht) 1 drop OS HS [facility] Last Admin: 11/25/17 21:37 Dose: 1 drop Losartan Potassium (Cozaar) 25 mg PO DAILY [facility] Last Admin: 11/25/17 08:41 Dose: Not Given Metoprolol Tartrate (Lopressor) 25 mg PO Q12 [facility] Last Admin: 11/25/17 21:33 Dose: 25 mg Pantoprazole Sodium (Protonix Ec Tab) 40 mg PO DAILY [facility] Last Admin: 11/25/17 08:44 Dose: 40 mg - Labs Labs: 11/24/17 05:20 11/24/17 05:20 PT 11.0 Seconds (9.8-13.1) 11/24/17 05:20 INR 1.0 11/24/17 05:20 - Constitutional Appears: Well - Head Exam Head Exam: ATRAUMATIC, NORMAL INSPECTION, NORMOCEPHALIC - Eye Exam Eye Exam: EOMI, Normal appearance, PERRL Pupil Exam: NORMAL ACCOMODATION, PERRL - ENT Exam ENT Exam: Mucous Membranes Moist, Normal Exam - Neck Exam Neck Exam: Full ROM, Normal Inspection. absent: Lymphadenopathy - Respiratory Exam Respiratory Exam: Clear to Ausculation Bilateral, NORMAL BREATHING PATTERN - Cardiovascular Exam Cardiovascular Exam: REGULAR RHYTHM, +S1, +S2, Murmur - GI/Abdominal Exam GI & Abdominal Exam: Soft, Normal Bowel Sounds. absent: Tenderness - Extremities Exam Extremities Exam: Full ROM, Normal Capillary Refill, Normal Inspection. absent : Joint Swelling, Pedal Edema - Back Exam Back Exam: NORMAL INSPECTION - Neurological Exam Neurological Exam: Alert, Awake, CN II-XII Intact, Normal Gait, Oriented x3 - Psychiatric Exam Psychiatric exam: Normal Affect, Normal Mood - Skin Skin Exam: Dry, Intact, Normal Color, Warm Assessment and Plan (1) CAD (coronary artery disease) Assessment & Plan: stable cont asa, plavix cont bb Status: Chronic (2) HTN (hypertension) Status: Acute (3) Ischemic stroke Status: Acute (4) TIA (transient ischemic attack) Status: Acute
[2017-11-26] MEDS: Insulin Regular 100 units/ml SC SCH ×4 (07:49→21:46)
[2017-11-26] MEDS: Aspirin 325 mg EC Tablets PO SCH (08:21)
[2017-11-26] MEDS: MESALAMINE 1.2 GM PO SCH (08:21)
[2017-11-26] MEDS: NETARSUDIL MESYLATE OS SCH (08:21)
[2017-11-26] MEDS: Pantoprazole 40 mg EC Tab PO SCH (08:22)
--- NOTE | 2017-11-26 09:01 | CP.PCM.PN ---
<Sarah Pink - Last Filed: 11/26/17 08:58> Subjective - Date & Time of Evaluation Date of Evaluation: 11/26/17 Time of Evaluation: 08:58 - Subjective Subjective: Ms. Prather was seen and examined at the bedside. She remains alert, oriented in all spheres. She denies any headache, dizziness, improving clarity of speech. She is able to participate majority of her ADL's. There was no untoward events overnight. Objective - Vital Signs/Intake and Output Vital Signs (last 24 hours): Temp Pulse Resp BP Pulse Ox 97.8 F 60 20 121/70 100 11/26/17 07:37 11/26/17 08:30 11/26/17 07:37 11/26/17 08:30 11/26/17 07:37 - Medications Medications: Current Medications Acetaminophen (Tylenol 325mg Tab) 650 mg PO Q6 PRN PRN Reason: pain scale 1-10 Aspirin (Ecotrin) 325 mg PO DAILY [facility] Last Admin: 11/26/17 08:21 Dose: 325 mg Atorvastatin Calcium (Lipitor) 20 mg PO HS [facility] Last Admin: 11/25/17 21:33 Dose: 20 mg Brimonidine Tartrate (Alphagan 0.2% Opht) 1 drop OU Q8 [facility] Last Admin: 11/26/17 05:19 Dose: 1 drop Clopidogrel Bisulfate (Plavix) 75 mg PO DAILY [facility] Last Admin: 11/26/17 08:21 Dose: 75 mg Furosemide (Lasix) 20 mg PO DAILY [facility] Last Admin: 11/26/17 08:22 Dose: 20 mg Home Med (Netarsudil Mesylate [Rhopressa]) 1 drop OS DAILY [facility] Last Admin: 11/26/17 08:21 Dose: 1 drop Home Med (Mesalamine [Lialda]) 1.2 gm PO BRK [facility] Last Admin: 11/26/17 08:21 Dose: 1.2 gm Insulin Human Regular (Humulin R) 0 units SC [facility] PRN Reason: Protocol Last Admin: 11/26/17 07:49 Dose: Not Given Isosorbide Dinitrate (Isordil) 30 mg PO DAILY [facility] Last Admin: 11/26/17 08:22 Dose: 30 mg Latanoprost (Xalatan Opht) 1 drop OS HS [facility] Last Admin: 11/25/17 21:37 Dose: 1 drop Losartan Potassium (Cozaar) 25 mg PO DAILY [facility] Last Admin: 11/26/17 08:23 Dose: Not Given Metoprolol Tartrate (Lopressor) 25 mg PO Q12 [facility] Last Admin: 11/26/17 08:30 Dose: 25 mg Pantoprazole Sodium (Protonix Ec Tab) 40 mg PO DAILY [facility] Last Admin: 11/26/17 08:22 Dose: 40 mg - Labs Labs: 11/24/17 05:20 11/24/17 05:20 PT 11.0 Seconds (9.8-13.1) 11/24/17 05:20 INR 1.0 11/24/17 05:20 - Constitutional Appears: No Acute Distress - Head Exam Head Exam: NORMAL INSPECTION - Eye Exam Pupil Exam: PERRL - Neurological Exam Neurological Exam: Alert, Awake, Oriented x3 Neuro motor strength exam: Left Upper Extremity: 4, Right Upper Extremity: 4, Left Lower Extremity: 3, Right Lower Extremity: 3 Additional comments: neurological unchanged from previous examination. Assessment and Plan (1) Ischemic stroke Assessment & Plan: COntinue all current medical, physical, occupational, and speech therapies. Recommend, hydration, blood pressure control. Status: Acute <Mendez,Gautami - Last Filed: 11/30/17 12:49> Objective - Vital Signs/Intake and Output Vital Signs (last 24 hours): Temp Pulse Resp BP Pulse Ox 98.0 F 85 20 136/74 100 11/30/17 09:14 11/30/17 09:14 11/30/17 09:14 11/30/17 09:14 11/30/17 09:14 - Medications Medications: Current Medications Acetaminophen (Tylenol 325mg Tab) 650 mg PO Q6 PRN PRN Reason: pain scale 1-10 Aspirin (Ecotrin) 325 mg PO DAILY [facility] Last Admin: 11/30/17 08:34 Dose: 325 mg Atorvastatin Calcium (Lipitor) 20 mg PO HS [facility] Last Admin: 11/29/17 21:33 Dose: 20 mg Brimonidine Tartrate (Alphagan 0.2% Opht) 1 drop OU Q8 [facility] Last Admin: 11/30/17 06:22 Dose: 1 drop Clopidogrel Bisulfate (Plavix) 75 mg PO DAILY [facility] Last Admin: 11/30/17 08:35 Dose: 75 mg Furosemide (Lasix) 20 mg PO DAILY [facility] Last Admin: 11/30/17 08:34 Dose: 20 mg Home Med (Netarsudil Mesylate [Rhopressa]) 1 drop OS DAILY [facility] Last Admin: 11/30/17 08:35 Dose: 1 drop Home Med (Mesalamine [Lialda]) 1.2 gm PO BRK [facility] Last Admin: 11/30/17 08:35 Dose: 1.2 gm Insulin Human Regular (Humulin R) 0 units SC ACHS [facility] PRN Reason: Protocol Last Admin: 11/30/17 12:00 Dose: Not Given Isosorbide Dinitrate (Isordil) 30 mg PO DAILY [facility] Last Admin: 11/30/17 08:33 Dose: 30 mg Latanoprost (Xalatan Opht) 1 drop OS HS [facility] Last Admin: 11/29/17 21:34 Dose: 1 drop Metoprolol Tartrate (Lopressor) 25 mg PO Q12 [facility] Last Admin: 11/30/17 08:33 Dose: 25 mg Pantoprazole Sodium (Protonix Ec Tab) 40 mg PO DAILY [facility] Last Admin: 11/30/17 08:39 Dose: 40 mg - Labs Labs: 11/24/17 05:20 11/24/17 05:20 PT 11.0 Seconds (9.8-13.1) 11/24/17 05:20 INR 1.0 11/24/17 05:20 Assessment and Plan - Assessment and Plan (Free Text) Plan: Attestation: I examined the patient myself and found the neurological exam to be unchanged. Agree with the assessment and the plan that i assisted in formulating. Thank you Dr. mendez
--- NOTE | 2017-11-26 14:36 | CP.PCM.PN ---
Subjective - Date & Time of Evaluation Date of Evaluation: 11/26/17 Time of Evaluation: 12:00 - Subjective Subjective: no acute compalints Objective - Vital Signs/Intake and Output Vital Signs (last 24 hours): Temp Pulse Resp BP Pulse Ox 97.8 F 60 20 121/70 100 11/26/17 07:37 11/26/17 08:30 11/26/17 07:37 11/26/17 08:30 11/26/17 07:37 - Medications Medications: Current Medications Acetaminophen (Tylenol 325mg Tab) 650 mg PO Q6 PRN PRN Reason: pain scale 1-10 Aspirin (Ecotrin) 325 mg PO DAILY [facility] Last Admin: 11/26/17 08:21 Dose: 325 mg Atorvastatin Calcium (Lipitor) 20 mg PO HS [facility] Last Admin: 11/25/17 21:33 Dose: 20 mg Brimonidine Tartrate (Alphagan 0.2% Opht) 1 drop OU Q8 [facility] Last Admin: 11/26/17 13:08 Dose: 1 drop Clopidogrel Bisulfate (Plavix) 75 mg PO DAILY [facility] Last Admin: 11/26/17 08:21 Dose: 75 mg Furosemide (Lasix) 20 mg PO DAILY [facility] Last Admin: 11/26/17 08:22 Dose: 20 mg Home Med (Netarsudil Mesylate [Rhopressa]) 1 drop OS DAILY [facility] Last Admin: 11/26/17 08:21 Dose: 1 drop Home Med (Mesalamine [Lialda]) 1.2 gm PO BRK [facility] Last Admin: 11/26/17 08:21 Dose: 1.2 gm Insulin Human Regular (Humulin R) 0 units SC ACHS [facility] PRN Reason: Protocol Last Admin: 11/26/17 13:07 Dose: Not Given Isosorbide Dinitrate (Isordil) 30 mg PO DAILY [facility] Last Admin: 11/26/17 08:22 Dose: 30 mg Latanoprost (Xalatan Opht) 1 drop OS HS [facility] Last Admin: 11/25/17 21:37 Dose: 1 drop Metoprolol Tartrate (Lopressor) 25 mg PO Q12 [facility] Last Admin: 11/26/17 08:30 Dose: 25 mg Pantoprazole Sodium (Protonix Ec Tab) 40 mg PO DAILY [facility] Last Admin: 11/26/17 08:22 Dose: 40 mg - Labs Labs: 11/24/17 05:20 11/24/17 05:20 PT 11.0 Seconds (9.8-13.1) 11/24/17 05:20 INR 1.0 11/24/17 05:20 - Head Exam Head Exam: ATRAUMATIC, NORMAL INSPECTION, NORMOCEPHALIC - Eye Exam Eye Exam: EOMI, Normal appearance, PERRL Pupil Exam: NORMAL ACCOMODATION - ENT Exam ENT Exam: Mucous Membranes Moist, Normal Exam - Neck Exam Neck Exam: Full ROM, Normal Inspection - Respiratory Exam Respiratory Exam: Clear to Ausculation Bilateral, NORMAL BREATHING PATTERN - Cardiovascular Exam Cardiovascular Exam: REGULAR RHYTHM - GI/Abdominal Exam GI & Abdominal Exam: Soft, Normal Bowel Sounds - Rectal Exam Rectal Exam: NORMAL INSPECTION - Exam External exam: NORMAL EXTERNAL EXAM - Extremities Exam Extremities Exam: Full ROM, Normal Capillary Refill - Back Exam Back Exam: NORMAL INSPECTION - Neurological Exam Neurological Exam: Alert, Awake Neuro motor strength exam: Left Lower Extremity: 3 - Psychiatric Exam Psychiatric exam: Normal Affect, Normal Mood - Skin Skin Exam: Normal Color Assessment and Plan (1) Ischemic stroke Assessment & Plan: plan for physical, occupational rec therapy Dc planning Status: Acute (2) Newly diagnosed diabetes Status: Acute (3) TIA (transient ischemic attack) Status: Acute
[2017-11-26] MEDS: Latanoprost 0.005% Opht SOUTION OS SCH (21:47)
[2017-11-27] MEDS: Brimonidine 0.2% 50 DROP/5 ML BOTTLE OU SCH ×3 (06:11→21:32)
--- NOTE | 2017-11-27 06:52 | CP.PCM.PN ---
Subjective - Date & Time of Evaluation Date of Evaluation: 11/26/17 Time of Evaluation: 17:35 Objective - Vital Signs/Intake and Output Vital Signs (last 24 hours): Temp Pulse Resp BP Pulse Ox 97.2 F L 77 20 154/84 H 99 11/26/17 19:53 11/26/17 21:47 11/26/17 19:53 11/26/17 21:47 11/26/17 19:53 - Medications Medications: Current Medications Acetaminophen (Tylenol 325mg Tab) 650 mg PO Q6 PRN PRN Reason: pain scale 1-10 Aspirin (Ecotrin) 325 mg PO DAILY [facility] Last Admin: 11/26/17 08:21 Dose: 325 mg Atorvastatin Calcium (Lipitor) 20 mg PO HS [facility] Last Admin: 11/26/17 21:46 Dose: 20 mg Brimonidine Tartrate (Alphagan 0.2% Opht) 1 drop OU Q8 [facility] Last Admin: 11/27/17 06:11 Dose: 1 drop Clopidogrel Bisulfate (Plavix) 75 mg PO DAILY [facility] Last Admin: 11/26/17 08:21 Dose: 75 mg Furosemide (Lasix) 20 mg PO DAILY [facility] Last Admin: 11/26/17 08:22 Dose: 20 mg Home Med (Netarsudil Mesylate [Rhopressa]) 1 drop OS DAILY [facility] Last Admin: 11/26/17 08:21 Dose: 1 drop Home Med (Mesalamine [Lialda]) 1.2 gm PO BRK [facility] Last Admin: 11/26/17 08:21 Dose: 1.2 gm Insulin Human Regular (Humulin R) 0 units SC ACHS [facility] PRN Reason: Protocol Last Admin: 11/26/17 21:46 Dose: Not Given Isosorbide Dinitrate (Isordil) 30 mg PO DAILY [facility] Last Admin: 11/26/17 08:22 Dose: 30 mg Latanoprost (Xalatan Opht) 1 drop OS HS [facility] Last Admin: 11/26/17 21:47 Dose: 1 drop Metoprolol Tartrate (Lopressor) 25 mg PO Q12 [facility] Last Admin: 11/26/17 21:47 Dose: 25 mg Pantoprazole Sodium (Protonix Ec Tab) 40 mg PO DAILY [facility] Last Admin: 11/26/17 08:22 Dose: 40 mg - Labs Labs: 11/24/17 05:20 11/24/17 05:20 PT 11.0 Seconds (9.8-13.1) 11/24/17 05:20 INR 1.0 11/24/17 05:20
[2017-11-27] MEDS: Insulin Regular 100 units/ml SC SCH ×4 (07:53→22:00)
[2017-11-27] MEDS: MESALAMINE 1.2 GM PO SCH (08:17)
[2017-11-27] MEDS: NETARSUDIL MESYLATE OS SCH (09:15)
[2017-11-27] MEDS: Aspirin 325 mg EC Tablets PO SCH (09:16)
[2017-11-27] MEDS: Pantoprazole 40 mg EC Tab PO SCH (09:16)
[2017-11-27] MEDS: Latanoprost 0.005% Opht SOUTION OS SCH (22:00)
[2017-11-28] MEDS: Brimonidine 0.2% 50 DROP/5 ML BOTTLE OU SCH ×3 (06:38→21:16)
[2017-11-28] MEDS: Insulin Regular 100 units/ml SC SCH ×4 (06:39→21:14)
[2017-11-28] MEDS: Pantoprazole 40 mg EC Tab PO SCH (08:39)
[2017-11-28] MEDS: Aspirin 325 mg EC Tablets PO SCH (08:39)
[2017-11-28] MEDS: MESALAMINE 1.2 GM PO SCH (08:40)
[2017-11-28] MEDS: NETARSUDIL MESYLATE OS SCH (08:41)
[2017-11-28] MEDS: Latanoprost 0.005% Opht SOUTION OS SCH (21:49)
[2017-11-29] MEDS: Brimonidine 0.2% 50 DROP/5 ML BOTTLE OU SCH ×3 (05:57→21:34)
[2017-11-29] MEDS: Insulin Regular 100 units/ml SC SCH ×4 (06:31→21:30)
--- NOTE | 2017-11-29 07:48 | CP.PCM.PN ---
Subjective - Date & Time of Evaluation Date of Evaluation: 11/28/17 Time of Evaluation: 17:00 - Subjective Subjective: Fairly stable. Noted elevated FBS and BP but refused to take additional medications unless every new order is checked with her home health clinician. Objective - Vital Signs/Intake and Output Vital Signs (last 24 hours): Temp Pulse Resp BP Pulse Ox 97.5 F L 69 20 142/66 97 11/28/17 20:03 11/28/17 21:15 11/28/17 20:03 11/28/17 21:15 11/28/17 20:03 - Medications Medications: Current Medications Acetaminophen (Tylenol 325mg Tab) 650 mg PO Q6 PRN PRN Reason: pain scale 1-10 Aspirin (Ecotrin) 325 mg PO DAILY [facility] Last Admin: 11/28/17 08:39 Dose: 325 mg Atorvastatin Calcium (Lipitor) 20 mg PO HS [facility] Last Admin: 11/28/17 21:15 Dose: 20 mg Brimonidine Tartrate (Alphagan 0.2% Opht) 1 drop OU Q8 [facility] Last Admin: 11/29/17 05:57 Dose: 1 drop Clopidogrel Bisulfate (Plavix) 75 mg PO DAILY [facility] Last Admin: 11/28/17 08:39 Dose: 75 mg Furosemide (Lasix) 20 mg PO DAILY [facility] Last Admin: 11/28/17 08:39 Dose: 20 mg Home Med (Netarsudil Mesylate [Rhopressa]) 1 drop OS DAILY [facility] Last Admin: 11/28/17 08:41 Dose: 1 drop Home Med (Mesalamine [Lialda]) 1.2 gm PO BRK [facility] Last Admin: 11/28/17 08:40 Dose: 1.2 gm Insulin Human Regular (Humulin R) 0 units SC [facility] PRN Reason: Protocol Last Admin: 11/29/17 06:31 Dose: Not Given Isosorbide Dinitrate (Isordil) 30 mg PO DAILY [facility] Last Admin: 11/28/17 08:40 Dose: 30 mg Latanoprost (Xalatan Opht) 1 drop OS HS [facility] Last Admin: 11/28/17 21:49 Dose: 1 drop Metoprolol Tartrate (Lopressor) 25 mg PO Q12 [facility] Last Admin: 11/28/17 21:15 Dose: 25 mg Pantoprazole Sodium (Protonix Ec Tab) 40 mg PO DAILY [facility] Last Admin: 11/28/17 08:39 Dose: 40 mg - Labs Labs: 11/24/17 05:20 11/24/17 05:20 PT 11.0 Seconds (9.8-13.1) 11/24/17 05:20 INR 1.0 11/24/17 05:20 - Head Exam Head Exam: NORMAL INSPECTION - Eye Exam Eye Exam: Normal appearance - ENT Exam ENT Exam: Mucous Membranes Moist - Respiratory Exam Respiratory Exam: Clear to Ausculation Bilateral - Cardiovascular Exam Cardiovascular Exam: REGULAR RHYTHM - Neurological Exam Neurological Exam: Awake, Oriented x3 Assessment and Plan (1) CAD (coronary artery disease) Status: Chronic (2) HTN (hypertension) Status: Chronic (3) TIA (transient ischemic attack) Status: Acute (4) Hyperlipidemia Status: Acute - Assessment and Plan (Free Text) Plan: Cont meds monitor BP Cont tx Cont PT
--- NOTE | 2017-11-29 08:43 | CP.PCM.PN ---
Subjective - Date & Time of Evaluation Date of Evaluation: 11/29/17 Time of Evaluation: 08:43 - Subjective Subjective: Ms. Prather was seen and examined at the bedside. She remains alert, oriented in all spheres. She denies any headache, dizziness, improving clarity of speech. She is able to participate majority of her ADL's such as feeding herself, brushing herself. There was no untoward events overnight. Objective - Vital Signs/Intake and Output Vital Signs (last 24 hours): Temp Pulse Resp BP Pulse Ox 97.7 F 59 L 18 124/57 L 94 L 11/29/17 08:05 11/29/17 08:05 11/29/17 08:05 11/29/17 08:05 11/29/17 08:05 - Medications Medications: Current Medications Acetaminophen (Tylenol 325mg Tab) 650 mg PO Q6 PRN PRN Reason: pain scale 1-10 Aspirin (Ecotrin) 325 mg PO DAILY [facility] Last Admin: 11/28/17 08:39 Dose: 325 mg Atorvastatin Calcium (Lipitor) 20 mg PO HS [facility] Last Admin: 11/28/17 21:15 Dose: 20 mg Brimonidine Tartrate (Alphagan 0.2% Opht) 1 drop OU Q8 [facility] Last Admin: 11/29/17 05:57 Dose: 1 drop Clopidogrel Bisulfate (Plavix) 75 mg PO DAILY [facility] Last Admin: 11/28/17 08:39 Dose: 75 mg Furosemide (Lasix) 20 mg PO DAILY [facility] Last Admin: 11/28/17 08:39 Dose: 20 mg Home Med (Netarsudil Mesylate [Rhopressa]) 1 drop OS DAILY [facility] Last Admin: 11/28/17 08:41 Dose: 1 drop Home Med (Mesalamine [Lialda]) 1.2 gm PO BRK [facility] Last Admin: 11/28/17 08:40 Dose: 1.2 gm Insulin Human Regular (Humulin R) 0 units SC [facility] PRN Reason: Protocol Last Admin: 11/29/17 06:31 Dose: Not Given Isosorbide Dinitrate (Isordil) 30 mg PO DAILY [facility] Last Admin: 11/28/17 08:40 Dose: 30 mg Latanoprost (Xalatan Opht) 1 drop OS HS [facility] Last Admin: 11/28/17 21:49 Dose: 1 drop Metoprolol Tartrate (Lopressor) 25 mg PO Q12 [facility] Last Admin: 11/28/17 21:15 Dose: 25 mg Pantoprazole Sodium (Protonix Ec Tab) 40 mg PO DAILY [facility] Last Admin: 11/28/17 08:39 Dose: 40 mg - Labs Labs: 11/24/17 05:20 11/24/17 05:20 PT 11.0 Seconds (9.8-13.1) 11/24/17 05:20 INR 1.0 11/24/17 05:20 - Constitutional Appears: No Acute Distress - Head Exam Head Exam: NORMAL INSPECTION - Eye Exam Pupil Exam: PERRL - Neurological Exam Neurological Exam: Alert, Awake, Oriented x3 Neuro motor strength exam: Left Upper Extremity: 4, Right Upper Extremity: 4, Left Lower Extremity: 3, Right Lower Extremity: 3 Additional comments: neurological unchanged from previous examination. Assessment and Plan (1) Ischemic stroke Assessment & Plan: Continue all current medical, physical, occupational, and speech therapies. Recommend, hydration, blood pressure control. Status: Acute
[2017-11-29] MEDS: MESALAMINE 1.2 GM PO SCH (09:00)
[2017-11-29] MEDS: Pantoprazole 40 mg EC Tab PO SCH (09:13)
[2017-11-29] MEDS: Aspirin 325 mg EC Tablets PO SCH (09:14)
[2017-11-29] MEDS: NETARSUDIL MESYLATE OS SCH (09:17)
[2017-11-29] MEDS: Latanoprost 0.005% Opht SOUTION OS SCH (21:34)
[2017-11-30] MEDS: Brimonidine 0.2% 50 DROP/5 ML BOTTLE OU SCH ×3 (06:22→21:40)
[2017-11-30] MEDS: Insulin Regular 100 units/ml SC SCH ×4 (06:39→21:46)
[2017-11-30] MEDS: Aspirin 325 mg EC Tablets PO SCH (08:34)
[2017-11-30] MEDS: Pantoprazole 40 mg EC Tab PO SCH ×3 (08:34→08:39)
[2017-11-30] MEDS: MESALAMINE 1.2 GM PO SCH (08:35)
[2017-11-30] MEDS: NETARSUDIL MESYLATE OS SCH (08:35)
--- NOTE | 2017-11-30 11:49 | CP.PCM.PN ---
Subjective - Date & Time of Evaluation Date of Evaluation: 11/28/17 Time of Evaluation: 14:00 - Subjective Subjective: no acute complaints at present Objective - Vital Signs/Intake and Output Vital Signs (last 24 hours): Temp Pulse Resp BP Pulse Ox 98.0 F 85 20 136/74 100 11/30/17 09:14 11/30/17 09:14 11/30/17 09:14 11/30/17 09:14 11/30/17 09:14 - Medications Medications: Current Medications Acetaminophen (Tylenol 325mg Tab) 650 mg PO Q6 PRN PRN Reason: pain scale 1-10 Aspirin (Ecotrin) 325 mg PO DAILY [facility] Last Admin: 11/30/17 08:34 Dose: 325 mg Atorvastatin Calcium (Lipitor) 20 mg PO HS [facility] Last Admin: 11/29/17 21:33 Dose: 20 mg Brimonidine Tartrate (Alphagan 0.2% Opht) 1 drop OU Q8 [facility] Last Admin: 11/30/17 06:22 Dose: 1 drop Clopidogrel Bisulfate (Plavix) 75 mg PO DAILY [facility] Last Admin: 11/30/17 08:35 Dose: 75 mg Furosemide (Lasix) 20 mg PO DAILY [facility] Last Admin: 11/30/17 08:34 Dose: 20 mg Home Med (Netarsudil Mesylate [Rhopressa]) 1 drop OS DAILY [facility] Last Admin: 11/30/17 08:35 Dose: 1 drop Home Med (Mesalamine [Lialda]) 1.2 gm PO BRK [facility] Last Admin: 11/30/17 08:35 Dose: 1.2 gm Insulin Human Regular (Humulin R) 0 units SC ACHS [facility] PRN Reason: Protocol Last Admin: 11/30/17 06:39 Dose: Not Given Isosorbide Dinitrate (Isordil) 30 mg PO DAILY [facility] Last Admin: 11/30/17 08:33 Dose: 30 mg Latanoprost (Xalatan Opht) 1 drop OS HS [facility] Last Admin: 11/29/17 21:34 Dose: 1 drop Metoprolol Tartrate (Lopressor) 25 mg PO Q12 [facility] Last Admin: 11/30/17 08:33 Dose: 25 mg Pantoprazole Sodium (Protonix Ec Tab) 40 mg PO DAILY [facility] Last Admin: 11/30/17 08:39 Dose: 40 mg - Labs Labs: 11/24/17 05:20 11/24/17 05:20 PT 11.0 Seconds (9.8-13.1) 11/24/17 05:20 INR 1.0 11/24/17 05:20 - Head Exam Head Exam: ATRAUMATIC, NORMAL INSPECTION, NORMOCEPHALIC - Eye Exam Eye Exam: EOMI, Normal appearance, PERRL Pupil Exam: NORMAL ACCOMODATION, PERRL - ENT Exam ENT Exam: Mucous Membranes Moist, Normal Exam - Neck Exam Neck Exam: Full ROM, Normal Inspection - Respiratory Exam Respiratory Exam: Clear to Ausculation Bilateral, NORMAL BREATHING PATTERN - Cardiovascular Exam Cardiovascular Exam: REGULAR RHYTHM - GI/Abdominal Exam GI & Abdominal Exam: Normal Bowel Sounds - Rectal Exam Rectal Exam: NORMAL INSPECTION - Exam External exam: NORMAL EXTERNAL EXAM Speculum exam: NORMAL SPECULUM EXAM - Extremities Exam Extremities Exam: Full ROM, Normal Capillary Refill, Normal Inspection - Back Exam Back Exam: NORMAL INSPECTION - Neurological Exam Neurological Exam: Alert, Awake Neuro motor strength exam: Left Upper Extremity: 3, Right Upper Extremity: 3, Left Lower Extremity: 3, Right Lower Extremity: 3 - Psychiatric Exam Psychiatric exam: Normal Affect, Normal Mood - Skin Skin Exam: Intact, Normal Color, Warm Assessment and Plan (1) Ischemic stroke Assessment & Plan: plan for physical, occupational, rec therapy for range of motion, strengthening , transfers and gait training Status: Acute (2) Newly diagnosed diabetes Status: Chronic (3) TIA (transient ischemic attack) Status: Acute
--- NOTE | 2017-11-30 16:17 | CP.PCM.PN ---
<Ed Caldera - Last Filed: 11/30/17 16:15> Subjective - Date & Time of Evaluation Date of Evaluation: 11/30/17 Time of Evaluation: 08:40 - Subjective Subjective: 82 y/o F evaluated and examined by bedside with Dr Stoddard. Pt reports feeling well but cold. Pt afebrile, with No acute events overnight, tolerating PO. Pt denies headache, chills, chest pain, SOB, N/V. Objective - Vital Signs/Intake and Output Vital Signs (last 24 hours): Temp Pulse Resp BP Pulse Ox 98.0 F 85 20 136/74 100 11/30/17 09:14 11/30/17 09:14 11/30/17 09:14 11/30/17 09:14 11/30/17 09:14 - Medications Medications: Current Medications Acetaminophen (Tylenol 325mg Tab) 650 mg PO Q6 PRN PRN Reason: pain scale 1-10 Aspirin (Ecotrin) 325 mg PO DAILY [facility] Last Admin: 11/30/17 08:34 Dose: 325 mg Atorvastatin Calcium (Lipitor) 20 mg PO HS [facility] Last Admin: 11/29/17 21:33 Dose: 20 mg Brimonidine Tartrate (Alphagan 0.2% Opht) 1 drop OU Q8 [facility] Last Admin: 11/30/17 13:35 Dose: 1 drop Clopidogrel Bisulfate (Plavix) 75 mg PO DAILY [facility] Last Admin: 11/30/17 08:35 Dose: 75 mg Furosemide (Lasix) 20 mg PO DAILY [facility] Last Admin: 11/30/17 08:34 Dose: 20 mg Home Med (Netarsudil Mesylate [Rhopressa]) 1 drop OS DAILY [facility] Last Admin: 11/30/17 08:35 Dose: 1 drop Home Med (Mesalamine [Lialda]) 1.2 gm PO BRK [facility] Last Admin: 11/30/17 08:35 Dose: 1.2 gm Insulin Human Regular (Humulin R) 0 units SC ACHS [facility] PRN Reason: Protocol Last Admin: 11/30/17 12:00 Dose: Not Given Isosorbide Dinitrate (Isordil) 30 mg PO DAILY [facility] Last Admin: 11/30/17 08:33 Dose: 30 mg Latanoprost (Xalatan Opht) 1 drop OS HS [facility] Last Admin: 11/29/17 21:34 Dose: 1 drop Metoprolol Tartrate (Lopressor) 25 mg PO Q12 [facility] Last Admin: 11/30/17 08:33 Dose: 25 mg Pantoprazole Sodium (Protonix Ec Tab) 40 mg PO DAILY [facility] Last Admin: 11/30/17 08:39 Dose: 40 mg - Labs Labs: 11/24/17 05:20 11/24/17 05:20 PT 11.0 Seconds (9.8-13.1) 11/24/17 05:20 INR 1.0 11/24/17 05:20 - Constitutional Appears: No Acute Distress - Head Exam Head Exam: NORMAL INSPECTION - Eye Exam Eye Exam: EOMI - ENT Exam ENT Exam: Mucous Membranes Moist - Neck Exam Neck Exam: Full ROM. absent: Meningismus - Respiratory Exam Respiratory Exam: NORMAL BREATHING PATTERN. absent: Rhonchi, Wheezes - Cardiovascular Exam Cardiovascular Exam: +S1, +S2 - GI/Abdominal Exam GI & Abdominal Exam: Soft. absent: Distended, Tenderness - Neurological Exam Neurological Exam: Alert, Awake, Oriented x3 Assessment and Plan - Assessment and Plan (Free Text) Assessment: 82 y/o F with a PMHx of hypertension, breast cancer, colitis, facial nerve palsy , and CAD (s/p 2 stents) admitted to TCU for rehabilitation after ischemic CVA. --Stable, recovering well --Continue management as ordered. --C/w physical therapy. --Neurology on board, Dr Ruiz. --Cardiology on board, Dr Matthew. <Miguel Stoddard - Last Filed: 12/06/17 06:02> Objective - Vital Signs/Intake and Output Vital Signs (last 24 hours): Temp Pulse Resp BP Pulse Ox 97.4 F L 66 20 147/60 96 12/05/17 21:13 12/05/17 21:13 12/05/17 21:13 12/05/17 21:13 12/05/17 21:13 - Medications Medications: Current Medications Acetaminophen (Tylenol 325mg Tab) 650 mg PO Q6 PRN PRN Reason: pain scale 1-10 Aspirin (Ecotrin) 325 mg PO DAILY [facility] Last Admin: 12/05/17 08:37 Dose: 325 mg Atorvastatin Calcium (Lipitor) 20 mg PO HS [facility] Last Admin: 12/05/17 21:08 Dose: 20 mg Brimonidine Tartrate (Alphagan 0.2% Opht) 1 drop OU Q8 [facility] Last Admin: 12/05/17 21:11 Dose: 1 drop Clopidogrel Bisulfate (Plavix) 75 mg PO DAILY [facility] Last Admin: 12/05/17 08:33 Dose: 75 mg Furosemide (Lasix) 20 mg PO DAILY [facility] Last Admin: 12/05/17 08:34 Dose: 20 mg Home Med (Netarsudil Mesylate [Rhopressa]) 1 drop OS DAILY [facility] Last Admin: 12/05/17 08:40 Dose: 1 drop Home Med (Mesalamine [Lialda]) 1.2 gm PO BRK [facility] Last Admin: 12/05/17 08:33 Dose: 1.2 gm Isosorbide Dinitrate (Isordil) 30 mg PO DAILY [facility] Last Admin: 12/05/17 08:34 Dose: 30 mg Latanoprost (Xalatan Opht) 1 drop OS HS [facility] Last Admin: 12/05/17 21:11 Dose: 1 drop Metoprolol Tartrate (Lopressor) 25 mg PO Q12 [facility] Last Admin: 12/05/17 21:08 Dose: 25 mg Pantoprazole Sodium (Protonix Ec Tab) 40 mg PO DAILY [facility] Last Admin: 12/05/17 08:33 Dose: 40 mg - Labs Labs: 11/24/17 05:20 11/24/17 05:20 PT 11.0 Seconds (9.8-13.1) 11/24/17 05:20 INR 1.0 11/24/17 05:20 Assessment and Plan (1) CAD (coronary artery disease) Status: Chronic (2) HTN (hypertension) Status: Chronic (3) TIA (transient ischemic attack) Status: Acute (4) Hyperlipidemia Status: Acute - Assessment and Plan (Free Text) Plan: I was present during evaluation and discussed with Dr Caldera re plans of care and mgt. Miguel Stoddard M.D.
[2017-11-30] MEDS: Latanoprost 0.005% Opht SOUTION OS SCH (21:40)
[2017-12-01] MEDS: Insulin Regular 100 units/ml SC SCH ×4 (06:38→21:27)
[2017-12-01] MEDS: Brimonidine 0.2% 50 DROP/5 ML BOTTLE OU SCH ×3 (06:38→21:26)
[2017-12-01] MEDS: Aspirin 325 mg EC Tablets PO SCH (08:50)
[2017-12-01] MEDS: MESALAMINE 1.2 GM PO SCH (08:50)
[2017-12-01] MEDS: NETARSUDIL MESYLATE OS SCH (08:52)
[2017-12-01] MEDS: Pantoprazole 40 mg EC Tab PO SCH (08:53)
--- NOTE | 2017-12-01 09:45 | CP.PCM.PN ---
Subjective - Date & Time of Evaluation Date of Evaluation: 12/01/17 Time of Evaluation: 09:45 - Subjective Subjective: Ms. Prather was seen and examined at the bedside. She remains alert, oriented in all spheres. She denies any headache, dizziness, improving clarity of speech. She is able to participate majority of her ADL's such as feeding herself, brushing herself. There was no untoward events overnight. Objective - Vital Signs/Intake and Output Vital Signs (last 24 hours): Temp Pulse Resp BP Pulse Ox 98.0 F 82 20 128/66 97 12/01/17 08:50 12/01/17 08:51 12/01/17 08:50 12/01/17 08:51 12/01/17 08:50 - Medications Medications: Current Medications Acetaminophen (Tylenol 325mg Tab) 650 mg PO Q6 PRN PRN Reason: pain scale 1-10 Aspirin (Ecotrin) 325 mg PO DAILY [facility] Last Admin: 12/01/17 08:50 Dose: 325 mg Atorvastatin Calcium (Lipitor) 20 mg PO HS [facility] Last Admin: 11/30/17 21:40 Dose: 20 mg Brimonidine Tartrate (Alphagan 0.2% Opht) 1 drop OU Q8 [facility] Last Admin: 12/01/17 06:38 Dose: 1 drop Clopidogrel Bisulfate (Plavix) 75 mg PO DAILY [facility] Last Admin: 12/01/17 08:50 Dose: 75 mg Furosemide (Lasix) 20 mg PO DAILY [facility] Last Admin: 12/01/17 08:50 Dose: 20 mg Home Med (Netarsudil Mesylate [Rhopressa]) 1 drop OS DAILY [facility] Last Admin: 12/01/17 08:52 Dose: 1 drop Home Med (Mesalamine [Lialda]) 1.2 gm PO BRK [facility] Last Admin: 12/01/17 08:50 Dose: 1.2 gm Insulin Human Regular (Humulin R) 0 units SC [facility] PRN Reason: Protocol Last Admin: 12/01/17 06:38 Dose: Not Given Isosorbide Dinitrate (Isordil) 30 mg PO DAILY [facility] Last Admin: 12/01/17 08:52 Dose: 30 mg Latanoprost (Xalatan Opht) 1 drop OS HS [facility] Last Admin: 11/30/17 21:40 Dose: 1 drop Metoprolol Tartrate (Lopressor) 25 mg PO Q12 [facility] Last Admin: 12/01/17 08:51 Dose: 25 mg Pantoprazole Sodium (Protonix Ec Tab) 40 mg PO DAILY [facility] Last Admin: 12/01/17 08:53 Dose: 40 mg - Labs Labs: 11/24/17 05:20 11/24/17 05:20 PT 11.0 Seconds (9.8-13.1) 11/24/17 05:20 INR 1.0 11/24/17 05:20 - Constitutional Appears: No Acute Distress - Head Exam Head Exam: NORMAL INSPECTION - Eye Exam Pupil Exam: PERRL - Neurological Exam Neurological Exam: Alert, Awake, Oriented x3 Neuro motor strength exam: Left Upper Extremity: 4, Right Upper Extremity: 4, Left Lower Extremity: 3, Right Lower Extremity: 3 Additional comments: neurological unchanged from previous examination. Assessment and Plan (1) Ischemic stroke Assessment & Plan: Continue all current medical, physical, occupational, and speech therapies. Recommend, hydration, blood pressure control. Status: Acute
--- NOTE | 2017-12-01 12:29 | PSY.TMCNF ---
Nursing - Vital Signs Vital Signs (Last 8 hours): Vital Signs 12/01/17 12/01/17 08:50 08:51 Temperature 98.0 F Pulse Rate 82 82 Respiratory 20 Rate Blood Pressure 128/66 128/66 O2 Sat by Pulse 97 Oximetry Pain: 0 - Precautions: Precautions: Fall Prevention, Cardiac/Pulmonary - Medications/Other Issues Comment: Pt at moderate nutritional risk. goals: 1. Pt to consume 75-100% of meals. 2. Blood glucoses to be between 70-180 mg/dl. Follow-up due on 2017 - Consults Comment: neuro-. production operations engineer - Toileting Toileting: Supervision - Bladder Management Bladder Pattern: Normal Voiding Method: Toilet - Bowel Management Bowel Pattern: Normal Bowel Management: Supervision Frequency of Accidents: none - Transfers Transfers: Minimal Assistance - ADL's ADL's: Minimal Assistance - Pain Management Comments: denies pain - Patient/Family Teaching Comments: safety, medications - Goals/Time Frame Comments: Pt was seen awake and alert sitting in her wheelchair in her room. Pt agreeable to participate in session and was brought into recreation room. Pt was able to identify her leisure interests such as watching television, cooking , cleaning, and working. 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 Pt reported that she comes home and will fondant cooker and watch television. Pt reported that her schedule is routine and she is worried - Provider Provider: TerryRN,CRRN Physical Therapy - Bed Mobility Bed Mobility: Supervision, Verbal Cues - Transfers Wheelchair to Mat: Supervision, Verbal Cues, Contact Guard Sit to Stand: Supervision, Verbal Cues Comment: RW. requires Cg with SPC - Ambulation Level of Assistance: Supervision, Verbal Cues Distance (ft.): 150 Assistive Devices: Rolling Walker Orthoses: n/a Comment: -150 feet with RW with supervision. -continued VCs for shoulder retraction, upright gaze and closer positioning to walker for more safe gait. - x 3 trials. -continued discussion regarding use of various assistive devices RW vs. SPC and use of SPC on steps and RW and use of SPC on steps; discussed multiple walkers as needed on each level surface - Stair Negotiation Stairs: Level of Assistance: Supervision, Verbal Cues, Contact Guard Stairs: Assistive Devices: Left Handrail, Right Handrail, Single point cane Comment: 1 flight 8 inch steps with L rail/spc on R and ascent and R rail/spc on L for descent. -x 2 trials with seated rest breaks. -VCs for safety and timing. -CG/CS for safety. *discussed PT's concerns that patient should not negotiation steps without supervision/assistance and discussed concern that patient has no bathroom/toilet on first floor of home; patient agrees - Standing Balance Static Stand: Supervision Dynamic Stand: Contact Guard Assist - Pain Pain (assessed during therapy session): 0 - Insight/Carryover Insight/Carryover: Good - Patient/Family Education Comment: -rehab/OT gaols, plan of care. -adls, transfers and mobility using adaptive/compensatory strategies, assistive device. -energy conservation/work simplication strategies. -homemaking skills - Assessment/Plan Assessment: Pt is a 82 year old female with dx: acute CVA. Precautions: falls, cardiac, R hand incoordination/weakness, impaired sensation. Pt limited by B incoordination/overall strength, impiared standing balance/tolerance, impaired safety, impaired in sight into limitations. Pt will continue to skilled OT to maxmize function in self care, transfers/mobility, Iadls, homemaking skills for safe transition home with services. Pt may benefit from 3 in one commode, transfer tub bench. Pt will need to remove shower doors to maximize safety in bathroom space. Recommend GRAPHICS PRODUCTION SPECIALIST to assist pt with IADLS/homemaking & self care prn. *Goal: Mod I for adls, transfers/mobility and light homemaking skills. - Goals Timeframe: 1 week Goals: Mod I for adls, transfers, light homemaking skills uisng adaptive strategies/devices - Provider License Number: [id number] Occupational Therapy - Arousal/Attention/Orientation Level of Consciousness: Awake, Alert Patient Orientation: Person, Place, Time, Appropriate to Age, Appropriate to Situation Assessment Comment: Pt mentions will retire go to [place] to live with her daughter and son in law - ADL/IADL Self Feeding: Independent, Set-up Help Grooming: Modified Independent, Supervision Bathing-Upper Extremity: Supervision, Verbal Cues, Set-up Help Bathing-Lower Extremity: Supervision, Verbal Cues, Set-up Help, Contact Guard Dressing-Upper Extremity: Supervision, Verbal Cues, Set-up Help Dressing-Lower Extremity: Supervision, Verbal Cues, Set-up Help, Contact Guard Homemaking: Verbal Cues, Set-up Help, Minimal Assistance - Sitting Balance Static Sitting: Independent without upper extremity support Dynamic Sitting: Reaches across midline, Reaches out of base of support, Reaches within base of support, Requires supervision Comment: seated unsupported - Transfers Wheelchair to Bed Transfers: Supervision, Verbal Cues, Set-up Help Toilet Transfers: Supervision, Verbal Cues, Set-up Help Comment: shower transfers with CG/Cs and verbal cues - Wheelchair Management Level of Assistance: Not Applicable - Upper Extremity Status Right Upper Extremity Comment: AROM is WFLS Left Upper Extremity Comment: AROM is WFLS - Pain Pain (assessed during therapy session): 0 - Insight/Carryover Insight/Carryover: Good - Patient/Family Education Comment: -rehab/OT gaols, plan of care. -adls, transfers and mobility using adaptive/compensatory strategies, assistive device. -energy conservation/work simplication strategies. -homemaking skills - Assessment/Plan Assessment: Pt is a 82 year old female with dx: acute CVA. Precautions: falls, cardiac, R hand incoordination/weakness, impaired sensation. Pt limited by B incoordination/overall strength, impiared standing balance/tolerance, impaired safety, impaired in sight into limitations. Pt will continue to skilled OT to maxmize function in self care, transfers/mobility, Iadls, homemaking skills for safe transition home with services. Pt may benefit from 3 in one commode, transfer tub bench. Pt will need to remove shower doors to maximize safety in bathroom space. Recommend GRAPHICS PRODUCTION SPECIALIST to assist pt with IADLS/homemaking & self care prn. *Goal: Mod I for adls, transfers/mobility and light homemaking skills. - Goals Timeframe: 1 week Goals: Mod I for adls, transfers, light homemaking skills uisng adaptive strategies/devices - Provider Therapist: Sherrill Rasmussen, OTR/L Speech Therapy - Consult Information Patient on Program: Yes Medical Diagnosis: CVA Treatment Diagnosis: mild dysarthria. mild cognitive-linguistic deficits - Assessment Expressive Language Impairment: Mild Memory Impairment: Mild Speech/Articulation Impairment: Mild - Plan Assessment: Pt is a 82 year old female with dx: acute CVA. Precautions: falls, cardiac, R hand incoordination/weakness, impaired sensation. Pt limited by B incoordination/overall strength, impiared standing balance/tolerance, impaired safety, impaired in sight into limitations. Pt will continue to skilled OT to maxmize function in self care, transfers/mobility, Iadls, homemaking skills for safe transition home with services. Pt may benefit from 3 in one commode, transfer tub bench. Pt will need to remove shower doors to maximize safety in bathroom space. Recommend GRAPHICS PRODUCTION SPECIALIST to assist pt with IADLS/homemaking & self care prn. *Goal: Mod I for adls, transfers/mobility and light homemaking skills. - Provider Therapist: Salma Llanos License Number: [id number] Recreational Therapy - Participation Participation: Participates in Individual and/or Group Sessions - Attendance Attendance: 3-5 times per week - Activities Leisure Activities: Cards and Games - Socialization Level of Socialization: Initiates/interacts freely with care givers and peer - Diversional Time Diversional Time: completes word searches and crossword puzzles in free time - Assessment Assessment/Plan: Pt is a 82 year old female with dx: acute CVA. Precautions: falls, cardiac, R hand incoordination/weakness, impaired sensation. Pt limited by B incoordination/overall strength, impiared standing balance/tolerance, impaired safety, impaired in sight into limitations. Pt will continue to skilled OT to maxmize function in self care, transfers/mobility, Iadls, homemaking skills for safe transition home with services. Pt may benefit from 3 in one commode, transfer tub bench. Pt will need to remove shower doors to maximize safety in bathroom space. Recommend GRAPHICS PRODUCTION SPECIALIST to assist pt with IADLS/ homemaking & self care prn. *Goal: Mod I for adls, transfers/mobility and light homemaking skills. - Provider Therapist: Amisha Harman, PSYCHOLOGICAL OPERATIONS SPECIALIST #[id number] Nutrition - Current Diet Current Diet/ Supplement/ Feedings: 2 gram Na moderate consistent CHO lactose intolerant. comment: patient would like Special K cereal and orange juice for breakfast - Appetite Percent Meal Consumed: 75-100% - Comments Comments: safety, medications - Assessment/Goals/Time Frame Assessment/Goals/Time Frame: Pt at moderate nutritional risk. goals: 1. Pt to consume 75-100% of meals. 2. Blood glucoses to be between 70-180 mg/dl. Follow-up due on 12/01/2017 - Provider Provider: Denise Deleon RD Case Management - Psychosocial Assessment Support Systems: Patient lives alone, however, family all supportive and involved in care. Aniya (triston)- [phone] Psychological Interventions/Needs: Patient is alert and oriented x3 and able to verbalize needs. Patient is pleasant, cooperative and motivated for therapy. Discharge Concerns: Patient lives alone with limited support during the day and with over 2 flights of stairs to negotiate Patient/Family Meeting: CM met with patient and rehab team Intervention/Goal/Outcome:: 1. Goal: Mod I overall. 2. Plan: Home with VNS vs outpatient PT dependent on progress. 3. DME needs. 4. f/u appts. 5. caregiver training? 6. emotional support. 7. continued stay auth, LAD: 11/29, updates to be faxed at that time. - Discharge Plan Discharge Plan: Home with services, Outpatient rehab - Provider Provider: TRACY Benz, METAL RIVET MACHINE OPERATOR License Number: [id number] Rehabilitation Plan - Treatment Plan Treatment Plan: Physical Therapy, Occupational Therapy, Speech, Dietary, Patient /Family Education - Recommendation Recommendation: Physical Therapy, Occupational Therapy, Speech, Patient/Family Education - Discharge Plan Discharge to: Home (dc 26)
--- NOTE | 2017-12-01 12:48 | CP.PCM.PN ---
Subjective - Date & Time of Evaluation Date of Evaluation: 12/01/17 Time of Evaluation: 11:20 - Subjective Subjective: no acute complaints at present Objective - Vital Signs/Intake and Output Vital Signs (last 24 hours): Temp Pulse Resp BP Pulse Ox 98.0 F 82 20 128/66 97 12/01/17 08:50 12/01/17 08:51 12/01/17 08:50 12/01/17 08:51 12/01/17 08:50 - Medications Medications: Current Medications Acetaminophen (Tylenol 325mg Tab) 650 mg PO Q6 PRN PRN Reason: pain scale 1-10 Aspirin (Ecotrin) 325 mg PO DAILY [facility] Last Admin: 12/01/17 08:50 Dose: 325 mg Atorvastatin Calcium (Lipitor) 20 mg PO HS [facility] Last Admin: 11/30/17 21:40 Dose: 20 mg Brimonidine Tartrate (Alphagan 0.2% Opht) 1 drop OU Q8 [facility] Last Admin: 12/01/17 06:38 Dose: 1 drop Clopidogrel Bisulfate (Plavix) 75 mg PO DAILY [facility] Last Admin: 12/01/17 08:50 Dose: 75 mg Furosemide (Lasix) 20 mg PO DAILY [facility] Last Admin: 12/01/17 08:50 Dose: 20 mg Home Med (Netarsudil Mesylate [Rhopressa]) 1 drop OS DAILY [facility] Last Admin: 12/01/17 08:52 Dose: 1 drop Home Med (Mesalamine [Lialda]) 1.2 gm PO BRK [facility] Last Admin: 12/01/17 08:50 Dose: 1.2 gm Insulin Human Regular (Humulin R) 0 units SC ACHS [facility] PRN Reason: Protocol Last Admin: 12/01/17 06:38 Dose: Not Given Isosorbide Dinitrate (Isordil) 30 mg PO DAILY [facility] Last Admin: 12/01/17 08:52 Dose: 30 mg Latanoprost (Xalatan Opht) 1 drop OS HS [facility] Last Admin: 11/30/17 21:40 Dose: 1 drop Metoprolol Tartrate (Lopressor) 25 mg PO Q12 [facility] Last Admin: 12/01/17 08:51 Dose: 25 mg Pantoprazole Sodium (Protonix Ec Tab) 40 mg PO DAILY [facility] Last Admin: 12/01/17 08:53 Dose: 40 mg - Labs Labs: 11/24/17 05:20 11/24/17 05:20 PT 11.0 Seconds (9.8-13.1) 11/24/17 05:20 INR 1.0 11/24/17 05:20 - Head Exam Head Exam: ATRAUMATIC, NORMAL INSPECTION, NORMOCEPHALIC - Eye Exam Eye Exam: EOMI, Normal appearance Pupil Exam: NORMAL ACCOMODATION, PERRL - ENT Exam ENT Exam: Mucous Membranes Moist, Normal Exam - Neck Exam Neck Exam: Full ROM, Normal Inspection - Respiratory Exam Respiratory Exam: Clear to Ausculation Bilateral, NORMAL BREATHING PATTERN - Cardiovascular Exam Cardiovascular Exam: REGULAR RHYTHM - GI/Abdominal Exam GI & Abdominal Exam: Soft, Normal Bowel Sounds - Rectal Exam Rectal Exam: NORMAL INSPECTION - Exam External exam: NORMAL EXTERNAL EXAM - Extremities Exam Extremities Exam: Full ROM, Normal Capillary Refill, Normal Inspection - Back Exam Back Exam: NORMAL INSPECTION - Neurological Exam Neurological Exam: Alert, Awake Neuro motor strength exam: Left Upper Extremity: 3, Right Upper Extremity: 3, Left Lower Extremity: 3, Right Lower Extremity: 3 - Psychiatric Exam Psychiatric exam: Normal Affect, Normal Mood - Skin Skin Exam: Dry, Normal Color Assessment and Plan (1) Ischemic stroke Assessment & Plan: status post team conference Dc for the 26th monitor FBS and BP Status: Acute (2) Newly diagnosed diabetes Status: Chronic (3) TIA (transient ischemic attack) Status: Acute
[2017-12-01] MEDS: Latanoprost 0.005% Opht SOUTION OS SCH (22:03)
[2017-12-02] MEDS: Brimonidine 0.2% 50 DROP/5 ML BOTTLE OU SCH ×3 (05:47→21:18)
[2017-12-02] MEDS: Insulin Regular 100 units/ml SC SCH ×4 (07:40→21:17)
[2017-12-02] MEDS: NETARSUDIL MESYLATE OS SCH (08:47)
[2017-12-02] MEDS: Pantoprazole 40 mg EC Tab PO SCH (08:47)
[2017-12-02] MEDS: MESALAMINE 1.2 GM PO SCH (08:48)
[2017-12-02] MEDS: Aspirin 325 mg EC Tablets PO SCH (08:48)
--- NOTE | 2017-12-02 09:16 | CP.PCM.PN ---
Subjective - Date & Time of Evaluation Date of Evaluation: 12/02/17 Time of Evaluation: 09:16 - Subjective Subjective: Ms. Prather was seen and examined at the bedside. She remains alert, oriented in all spheres. She denies any headache, dizziness, improving clarity of speech. She is able to participate majority of her ADL's such as feeding herself, brushing herself. Educated patient regarding the importance of follow up post discharge, verbalizes understanding but would like a neurologist located in [place]. There was no untoward events overnight. Objective - Vital Signs/Intake and Output Vital Signs (last 24 hours): Temp Pulse Resp BP Pulse Ox 97.3 F L 77 20 144/78 95 12/01/17 20:45 12/02/17 08:47 12/01/17 20:45 12/02/17 08:48 12/01/17 20:45 - Medications Medications: Current Medications Acetaminophen (Tylenol 325mg Tab) 650 mg PO Q6 PRN PRN Reason: pain scale 1-10 Aspirin (Ecotrin) 325 mg PO DAILY [facility] Last Admin: 12/02/17 08:48 Dose: 325 mg Atorvastatin Calcium (Lipitor) 20 mg PO HS [facility] Last Admin: 12/01/17 21:25 Dose: 20 mg Brimonidine Tartrate (Alphagan 0.2% Opht) 1 drop OU Q8 [facility] Last Admin: 12/02/17 05:47 Dose: 1 drop Clopidogrel Bisulfate (Plavix) 75 mg PO DAILY [facility] Last Admin: 12/02/17 08:48 Dose: 75 mg Furosemide (Lasix) 20 mg PO DAILY [facility] Last Admin: 12/02/17 08:48 Dose: 20 mg Home Med (Netarsudil Mesylate [Rhopressa]) 1 drop OS DAILY [facility] Last Admin: 12/02/17 08:47 Dose: 1 drop Home Med (Mesalamine [Lialda]) 1.2 gm PO BRK [facility] Last Admin: 12/02/17 08:48 Dose: 1.2 gm Insulin Human Regular (Humulin R) 0 units SC ACHS [facility] PRN Reason: Protocol Last Admin: 12/02/17 07:40 Dose: Not Given Isosorbide Dinitrate (Isordil) 30 mg PO DAILY [facility] Last Admin: 12/02/17 08:47 Dose: 30 mg Latanoprost (Xalatan Opht) 1 drop OS HS [facility] Last Admin: 12/01/17 22:03 Dose: 1 drop Metoprolol Tartrate (Lopressor) 25 mg PO Q12 [facility] Last Admin: 12/02/17 08:47 Dose: 25 mg Pantoprazole Sodium (Protonix Ec Tab) 40 mg PO DAILY [facility] Last Admin: 12/02/17 08:47 Dose: 40 mg - Labs Labs: 11/24/17 05:20 11/24/17 05:20 PT 11.0 Seconds (9.8-13.1) 11/24/17 05:20 INR 1.0 11/24/17 05:20 - Constitutional Appears: No Acute Distress - Head Exam Head Exam: NORMAL INSPECTION - Eye Exam Pupil Exam: PERRL - Neurological Exam Neurological Exam: Alert, Awake, Oriented x3 Neuro motor strength exam: Left Upper Extremity: 4, Right Upper Extremity: 4, Left Lower Extremity: 4, Right Lower Extremity: 4 Additional comments: neurological examination unchanged from previous examination. Assessment and Plan (1) Ischemic stroke Assessment & Plan: Continue all current medical, physical, occupational, and speech therapies. Recommend hydration, blood pressure control, and follow up with Dr. Lianres upon discharge. Status: Acute
[2017-12-02] MEDS: Latanoprost 0.005% Opht SOUTION OS SCH (22:28)
[2017-12-03] MEDS: Brimonidine 0.2% 50 DROP/5 ML BOTTLE OU SCH ×3 (05:35→21:25)
[2017-12-03] MEDS: Insulin Regular 100 units/ml SC SCH ×4 (06:36→21:37)
[2017-12-03] MEDS: Aspirin 325 mg EC Tablets PO SCH (08:46)
[2017-12-03] MEDS: MESALAMINE 1.2 GM PO SCH (08:46)
[2017-12-03] MEDS: NETARSUDIL MESYLATE OS SCH (08:49)
[2017-12-03] MEDS: Pantoprazole 40 mg EC Tab PO SCH (08:50)
--- NOTE | 2017-12-03 08:50 | CP.PCM.PN ---
Subjective - Date & Time of Evaluation Date of Evaluation: 12/03/17 Time of Evaluation: 08:50 - Subjective Subjective: Ms. Prather was seen and examined at the bedside. She remains alert, oriented in all spheres. She denies any headache, dizziness, improving clarity of speech. She is able to participate majority of her ADL's such as feeding herself, brushing herself. Educated patient regarding the importance of follow up post discharge, verbalizes understanding but would like a neurologist located in [place]. She further state of the possibility of moving near her daughter in [place]. There was no untoward events overnight. Objective - Vital Signs/Intake and Output Vital Signs (last 24 hours): Temp Pulse Resp BP Pulse Ox 96.4 F L 71 18 145/61 97 12/03/17 07:49 12/03/17 07:49 12/03/17 07:49 12/03/17 07:49 12/03/17 07:49 - Medications Medications: Current Medications Acetaminophen (Tylenol 325mg Tab) 650 mg PO Q6 PRN PRN Reason: pain scale 1-10 Aspirin (Ecotrin) 325 mg PO DAILY [facility] Last Admin: 12/02/17 08:48 Dose: 325 mg Atorvastatin Calcium (Lipitor) 20 mg PO HS [facility] Last Admin: 12/02/17 21:17 Dose: 20 mg Brimonidine Tartrate (Alphagan 0.2% Opht) 1 drop OU Q8 [facility] Last Admin: 12/03/17 05:35 Dose: 1 drop Clopidogrel Bisulfate (Plavix) 75 mg PO DAILY [facility] Last Admin: 12/02/17 08:48 Dose: 75 mg Furosemide (Lasix) 20 mg PO DAILY [facility] Last Admin: 12/02/17 08:48 Dose: 20 mg Home Med (Netarsudil Mesylate [Rhopressa]) 1 drop OS DAILY [facility] Last Admin: 12/02/17 08:47 Dose: 1 drop Home Med (Mesalamine [Lialda]) 1.2 gm PO BRK [facility] Last Admin: 12/02/17 08:48 Dose: 1.2 gm Insulin Human Regular (Humulin R) 0 units SC ACHS [facility] PRN Reason: Protocol Last Admin: 12/03/17 06:36 Dose: Not Given Isosorbide Dinitrate (Isordil) 30 mg PO DAILY [facility] Last Admin: 12/02/17 08:47 Dose: 30 mg Latanoprost (Xalatan Opht) 1 drop OS HS [facility] Last Admin: 12/02/17 22:28 Dose: 1 drop Metoprolol Tartrate (Lopressor) 25 mg PO Q12 [facility] Last Admin: 12/02/17 21:17 Dose: 25 mg Pantoprazole Sodium (Protonix Ec Tab) 40 mg PO DAILY [facility] Last Admin: 12/02/17 08:47 Dose: 40 mg - Labs Labs: 11/24/17 05:20 11/24/17 05:20 PT 11.0 Seconds (9.8-13.1) 11/24/17 05:20 INR 1.0 11/24/17 05:20 - Constitutional Appears: No Acute Distress - Head Exam Head Exam: NORMAL INSPECTION - Neurological Exam Neurological Exam: Alert, Awake, Oriented x3 Neuro motor strength exam: Left Upper Extremity: 4, Right Upper Extremity: 4, Left Lower Extremity: 4, Right Lower Extremity: 4 Additional comments: neurological unchanged from previous examination. Assessment and Plan (1) Ischemic stroke Assessment & Plan: Continue all current medical, physical, occupational, and speech therapies. Recommend hydration, blood pressure control, and follow up with Dr. Linares or any neurology in [place] upon discharge. Status: Acute
--- NOTE | 2017-12-03 14:34 | CP.PCM.PN ---
Subjective - Date & Time of Evaluation Date of Evaluation: 12/03/17 Time of Evaluation: 13:00 - Subjective Subjective: no acute complaints at present, generalized weakness Objective - Vital Signs/Intake and Output Vital Signs (last 24 hours): Temp Pulse Resp BP Pulse Ox 96.4 F L 71 18 145/61 97 12/03/17 07:49 12/03/17 08:47 12/03/17 07:49 12/03/17 08:47 12/03/17 07:49 - Medications Medications: Current Medications Acetaminophen (Tylenol 325mg Tab) 650 mg PO Q6 PRN PRN Reason: pain scale 1-10 Aspirin (Ecotrin) 325 mg PO DAILY [facility] Last Admin: 12/03/17 08:46 Dose: 325 mg Atorvastatin Calcium (Lipitor) 20 mg PO HS [facility] Last Admin: 12/02/17 21:17 Dose: 20 mg Brimonidine Tartrate (Alphagan 0.2% Opht) 1 drop OU Q8 [facility] Last Admin: 12/03/17 05:35 Dose: 1 drop Clopidogrel Bisulfate (Plavix) 75 mg PO DAILY [facility] Last Admin: 12/03/17 08:46 Dose: 75 mg Furosemide (Lasix) 20 mg PO DAILY [facility] Last Admin: 12/03/17 08:47 Dose: 20 mg Home Med (Netarsudil Mesylate [Rhopressa]) 1 drop OS DAILY [facility] Last Admin: 12/03/17 08:49 Dose: 1 drop Home Med (Mesalamine [Lialda]) 1.2 gm PO BRK [facility] Last Admin: 12/03/17 08:46 Dose: 1.2 gm Insulin Human Regular (Humulin R) 0 units SC ACHS [facility] PRN Reason: Protocol Last Admin: 12/03/17 12:29 Dose: Not Given Isosorbide Dinitrate (Isordil) 30 mg PO DAILY [facility] Last Admin: 12/03/17 08:48 Dose: 30 mg Latanoprost (Xalatan Opht) 1 drop OS HS [facility] Last Admin: 12/02/17 22:28 Dose: 1 drop Metoprolol Tartrate (Lopressor) 25 mg PO Q12 [facility] Last Admin: 12/03/17 08:47 Dose: 25 mg Pantoprazole Sodium (Protonix Ec Tab) 40 mg PO DAILY [facility] Last Admin: 12/03/17 08:50 Dose: 40 mg - Labs Labs: 11/24/17 05:20 11/24/17 05:20 PT 11.0 Seconds (9.8-13.1) 11/24/17 05:20 INR 1.0 11/24/17 05:20 - Head Exam Head Exam: ATRAUMATIC, NORMAL INSPECTION, NORMOCEPHALIC - Eye Exam Eye Exam: EOMI, Normal appearance, PERRL Pupil Exam: NORMAL ACCOMODATION, PERRL - ENT Exam ENT Exam: Mucous Membranes Moist, Normal Exam - Neck Exam Neck Exam: Full ROM, Normal Inspection - Respiratory Exam Respiratory Exam: Clear to Ausculation Bilateral, NORMAL BREATHING PATTERN - Cardiovascular Exam Cardiovascular Exam: REGULAR RHYTHM - GI/Abdominal Exam GI & Abdominal Exam: Soft, Normal Bowel Sounds - Rectal Exam Rectal Exam: NORMAL INSPECTION - Exam External exam: NORMAL EXTERNAL EXAM - Extremities Exam Extremities Exam: Full ROM, Normal Capillary Refill, Normal Inspection - Back Exam Back Exam: NORMAL INSPECTION - Neurological Exam Neurological Exam: Alert, Awake Neuro motor strength exam: Left Upper Extremity: 3, Left Lower Extremity: 3 - Psychiatric Exam Psychiatric exam: Normal Affect, Normal Mood - Skin Skin Exam: Dry, Intact Assessment and Plan (1) Ischemic stroke Assessment & Plan: range of motion, strengthening, transfers and gait training, Pt, Ot , rec therapy Status: Acute (2) Newly diagnosed diabetes Status: Chronic (3) TIA (transient ischemic attack) Status: Acute
[2017-12-03] MEDS: Latanoprost 0.005% Opht SOUTION OS SCH (22:20)
[2017-12-04] MEDS: Brimonidine 0.2% 50 DROP/5 ML BOTTLE OU SCH ×3 (05:49→22:03)
[2017-12-04] MEDS: Insulin Regular 100 units/ml SC SCH ×2 (07:30→11:30)
[2017-12-04] MEDS: MESALAMINE 1.2 GM PO SCH (08:13)
[2017-12-04] MEDS: Aspirin 325 mg EC Tablets PO SCH (08:13)
[2017-12-04] MEDS: NETARSUDIL MESYLATE OS SCH (08:15)
[2017-12-04] MEDS: Pantoprazole 40 mg EC Tab PO SCH (08:15)
[2017-12-04] MEDS: Latanoprost 0.005% Opht SOUTION OS SCH (22:03)
[2017-12-05] MEDS: Brimonidine 0.2% 50 DROP/5 ML BOTTLE OU SCH ×3 (06:11→21:11)
[2017-12-05] MEDS: Pantoprazole 40 mg EC Tab PO SCH (08:33)
[2017-12-05] MEDS: MESALAMINE 1.2 GM PO SCH (08:33)
[2017-12-05] MEDS: Aspirin 325 mg EC Tablets PO SCH (08:37)
[2017-12-05] MEDS: NETARSUDIL MESYLATE OS SCH (08:40)
[2017-12-05] MEDS: Latanoprost 0.005% Opht SOUTION OS SCH (21:11)
--- NOTE | 2017-12-06 06:02 | CP.PCM.PN ---
Subjective - Date & Time of Evaluation Date of Evaluation: 11/29/17 Time of Evaluation: 10:00 - Subjective Subjective: Doing well with medications BP is normal Has no headaches or chest pain or SOB. Objective - Vital Signs/Intake and Output Vital Signs (last 24 hours): Temp Pulse Resp BP Pulse Ox 97.4 F L 66 20 147/60 96 12/05/17 21:13 12/05/17 21:13 12/05/17 21:13 12/05/17 21:13 12/05/17 21:13 - Medications Medications: Current Medications Acetaminophen (Tylenol 325mg Tab) 650 mg PO Q6 PRN PRN Reason: pain scale 1-10 Aspirin (Ecotrin) 325 mg PO DAILY [facility] Last Admin: 12/05/17 08:37 Dose: 325 mg Atorvastatin Calcium (Lipitor) 20 mg PO HS [facility] Last Admin: 12/05/17 21:08 Dose: 20 mg Brimonidine Tartrate (Alphagan 0.2% Opht) 1 drop OU Q8 [facility] Last Admin: 12/05/17 21:11 Dose: 1 drop Clopidogrel Bisulfate (Plavix) 75 mg PO DAILY [facility] Last Admin: 12/05/17 08:33 Dose: 75 mg Furosemide (Lasix) 20 mg PO DAILY [facility] Last Admin: 12/05/17 08:34 Dose: 20 mg Home Med (Netarsudil Mesylate [Rhopressa]) 1 drop OS DAILY [facility] Last Admin: 12/05/17 08:40 Dose: 1 drop Home Med (Mesalamine [Lialda]) 1.2 gm PO BRK [facility] Last Admin: 12/05/17 08:33 Dose: 1.2 gm Isosorbide Dinitrate (Isordil) 30 mg PO DAILY [facility] Last Admin: 12/05/17 08:34 Dose: 30 mg Latanoprost (Xalatan Opht) 1 drop OS HS [facility] Last Admin: 12/05/17 21:11 Dose: 1 drop Metoprolol Tartrate (Lopressor) 25 mg PO Q12 [facility] Last Admin: 12/05/17 21:08 Dose: 25 mg Pantoprazole Sodium (Protonix Ec Tab) 40 mg PO DAILY [facility] Last Admin: 12/05/17 08:33 Dose: 40 mg - Labs Labs: 11/24/17 05:20 11/24/17 05:20 PT 11.0 Seconds (9.8-13.1) 11/24/17 05:20 INR 1.0 11/24/17 05:20 - Head Exam Head Exam: NORMAL INSPECTION - Eye Exam Eye Exam: Normal appearance - ENT Exam ENT Exam: Mucous Membranes Moist - Respiratory Exam Respiratory Exam: Clear to Ausculation Bilateral - Cardiovascular Exam Cardiovascular Exam: REGULAR RHYTHM - GI/Abdominal Exam GI & Abdominal Exam: Normal Bowel Sounds - Neurological Exam Neurological Exam: Awake, Oriented x3 Assessment and Plan (1) CAD (coronary artery disease) Status: Chronic (2) HTN (hypertension) Status: Chronic (3) TIA (transient ischemic attack) Status: Acute (4) Hyperlipidemia Status: Acute - Assessment and Plan (Free Text) Plan: Con tmeds Cont PT check accuchec' follow up a1c cont all meds.
--- NOTE | 2017-12-06 06:04 | CP.PCM.PN ---
Subjective - Date & Time of Evaluation Date of Evaluation: 12/02/17 Time of Evaluation: 10:40 - Subjective Subjective: Patient is doing well Has no chest pain or SOB Afebrile. Objective - Vital Signs/Intake and Output Vital Signs (last 24 hours): Temp Pulse Resp BP Pulse Ox 97.4 F L 66 20 147/60 96 12/05/17 21:13 12/05/17 21:13 12/05/17 21:13 12/05/17 21:13 12/05/17 21:13 - Medications Medications: Current Medications Acetaminophen (Tylenol 325mg Tab) 650 mg PO Q6 PRN PRN Reason: pain scale 1-10 Aspirin (Ecotrin) 325 mg PO DAILY [facility] Last Admin: 12/05/17 08:37 Dose: 325 mg Atorvastatin Calcium (Lipitor) 20 mg PO HS [facility] Last Admin: 12/05/17 21:08 Dose: 20 mg Brimonidine Tartrate (Alphagan 0.2% Opht) 1 drop OU Q8 [facility] Last Admin: 12/05/17 21:11 Dose: 1 drop Clopidogrel Bisulfate (Plavix) 75 mg PO DAILY [facility] Last Admin: 12/05/17 08:33 Dose: 75 mg Furosemide (Lasix) 20 mg PO DAILY [facility] Last Admin: 12/05/17 08:34 Dose: 20 mg Home Med (Netarsudil Mesylate [Rhopressa]) 1 drop OS DAILY [facility] Last Admin: 12/05/17 08:40 Dose: 1 drop Home Med (Mesalamine [Lialda]) 1.2 gm PO BRK [facility] Last Admin: 12/05/17 08:33 Dose: 1.2 gm Isosorbide Dinitrate (Isordil) 30 mg PO DAILY [facility] Last Admin: 12/05/17 08:34 Dose: 30 mg Latanoprost (Xalatan Opht) 1 drop OS HS [facility] Last Admin: 12/05/17 21:11 Dose: 1 drop Metoprolol Tartrate (Lopressor) 25 mg PO Q12 [facility] Last Admin: 12/05/17 21:08 Dose: 25 mg Pantoprazole Sodium (Protonix Ec Tab) 40 mg PO DAILY [facility] Last Admin: 12/05/17 08:33 Dose: 40 mg - Labs Labs: 11/24/17 05:20 11/24/17 05:20 PT 11.0 Seconds (9.8-13.1) 11/24/17 05:20 INR 1.0 11/24/17 05:20 - Head Exam Head Exam: NORMAL INSPECTION - Eye Exam Eye Exam: Normal appearance - ENT Exam ENT Exam: Mucous Membranes Moist - Respiratory Exam Respiratory Exam: Clear to Ausculation Bilateral - Cardiovascular Exam Cardiovascular Exam: REGULAR RHYTHM - Neurological Exam Neurological Exam: Awake, Oriented x3 Assessment and Plan (1) CAD (coronary artery disease) Status: Chronic (2) HTN (hypertension) Status: Chronic (3) TIA (transient ischemic attack) Status: Acute (4) Hyperlipidemia Status: Acute - Assessment and Plan (Free Text) Plan: Cont meds Cont tx Cont PT
--- NOTE | 2017-12-06 06:06 | CP.PCM.PN ---
Subjective - Date & Time of Evaluation Date of Evaluation: 12/04/17 Time of Evaluation: 11:00 - Subjective Subjective: Patient remains stable BP has been normal Doing well with PT Objective - Vital Signs/Intake and Output Vital Signs (last 24 hours): Temp Pulse Resp BP Pulse Ox 97.4 F L 66 20 147/60 96 12/05/17 21:13 12/05/17 21:13 12/05/17 21:13 12/05/17 21:13 12/05/17 21:13 - Medications Medications: Current Medications Acetaminophen (Tylenol 325mg Tab) 650 mg PO Q6 PRN PRN Reason: pain scale 1-10 Aspirin (Ecotrin) 325 mg PO DAILY [facility] Last Admin: 12/05/17 08:37 Dose: 325 mg Atorvastatin Calcium (Lipitor) 20 mg PO HS [facility] Last Admin: 12/05/17 21:08 Dose: 20 mg Brimonidine Tartrate (Alphagan 0.2% Opht) 1 drop OU Q8 [facility] Last Admin: 12/05/17 21:11 Dose: 1 drop Clopidogrel Bisulfate (Plavix) 75 mg PO DAILY [facility] Last Admin: 12/05/17 08:33 Dose: 75 mg Furosemide (Lasix) 20 mg PO DAILY [facility] Last Admin: 12/05/17 08:34 Dose: 20 mg Home Med (Netarsudil Mesylate [Rhopressa]) 1 drop OS DAILY [facility] Last Admin: 12/05/17 08:40 Dose: 1 drop Home Med (Mesalamine [Lialda]) 1.2 gm PO BRK [facility] Last Admin: 12/05/17 08:33 Dose: 1.2 gm Isosorbide Dinitrate (Isordil) 30 mg PO DAILY [facility] Last Admin: 12/05/17 08:34 Dose: 30 mg Latanoprost (Xalatan Opht) 1 drop OS HS [facility] Last Admin: 12/05/17 21:11 Dose: 1 drop Metoprolol Tartrate (Lopressor) 25 mg PO Q12 [facility] Last Admin: 12/05/17 21:08 Dose: 25 mg Pantoprazole Sodium (Protonix Ec Tab) 40 mg PO DAILY [facility] Last Admin: 12/05/17 08:33 Dose: 40 mg - Labs Labs: 11/24/17 05:20 11/24/17 05:20 PT 11.0 Seconds (9.8-13.1) 11/24/17 05:20 INR 1.0 11/24/17 05:20 - Head Exam Head Exam: NORMAL INSPECTION - Eye Exam Eye Exam: Normal appearance - Respiratory Exam Respiratory Exam: Clear to Ausculation Bilateral - Cardiovascular Exam Cardiovascular Exam: REGULAR RHYTHM - GI/Abdominal Exam GI & Abdominal Exam: Soft - Neurological Exam Neurological Exam: Awake, Oriented x3 Assessment and Plan (1) CAD (coronary artery disease) Status: Chronic (2) HTN (hypertension) Status: Chronic (3) TIA (transient ischemic attack) Status: Acute (4) Hyperlipidemia Status: Acute - Assessment and Plan (Free Text) Plan: Cont meds Cont tx Cont PT
[2017-12-06] MEDS: Brimonidine 0.2% 50 DROP/5 ML BOTTLE OU SCH ×3 (06:11→21:05)
[2017-12-06] MEDS: Pantoprazole 40 mg EC Tab PO SCH (08:46)
[2017-12-06] MEDS: MESALAMINE 1.2 GM PO SCH (08:47)
[2017-12-06] MEDS: Aspirin 325 mg EC Tablets PO SCH (08:47)
[2017-12-06] MEDS: NETARSUDIL MESYLATE OS SCH (08:49)
--- NOTE | 2017-12-06 09:57 | CP.PCM.PN ---
Subjective - Date & Time of Evaluation Date of Evaluation: 12/06/17 Time of Evaluation: 09:57 - Subjective Subjective: Ms. Prather was seen and examined at the bedside. She remains alert, oriented in all spheres. She denies any headache, dizziness, improving clarity of speech. She is able to participate majority of her ADL's such as feeding herself, brushing herself. Educated patient regarding the importance of follow up post discharge, verbalizes understanding but would like a neurologist located in [place]. She further state of the possibility of moving near her daughter in [place]. There was no untoward events overnight. Objective - Vital Signs/Intake and Output Vital Signs (last 24 hours): Temp Pulse Resp BP Pulse Ox 96.6 F L 57 L 20 114/59 L 97 12/06/17 07:52 12/06/17 08:44 12/06/17 07:52 12/06/17 08:45 12/06/17 07:52 - Medications Medications: Current Medications Acetaminophen (Tylenol 325mg Tab) 650 mg PO Q6 PRN PRN Reason: pain scale 1-10 Aspirin (Ecotrin) 325 mg PO DAILY [facility] Last Admin: 12/06/17 08:47 Dose: 325 mg Atorvastatin Calcium (Lipitor) 20 mg PO HS [facility] Last Admin: 12/05/17 21:08 Dose: 20 mg Brimonidine Tartrate (Alphagan 0.2% Opht) 1 drop OU Q8 [facility] Last Admin: 12/06/17 06:11 Dose: 1 drop Clopidogrel Bisulfate (Plavix) 75 mg PO DAILY [facility] Last Admin: 12/06/17 08:46 Dose: 75 mg Furosemide (Lasix) 20 mg PO DAILY [facility] Last Admin: 12/06/17 08:45 Dose: 20 mg Home Med (Netarsudil Mesylate [Rhopressa]) 1 drop OS DAILY [facility] Last Admin: 12/06/17 08:49 Dose: 1 drop Home Med (Mesalamine [Lialda]) 1.2 gm PO BRK [facility] Last Admin: 12/06/17 08:47 Dose: 1.2 gm Isosorbide Dinitrate (Isordil) 30 mg PO DAILY [facility] Last Admin: 12/06/17 08:46 Dose: 30 mg Latanoprost (Xalatan Opht) 1 drop OS HS [facility] Last Admin: 12/05/17 21:11 Dose: 1 drop Metoprolol Tartrate (Lopressor) 25 mg PO Q12 [facility] Last Admin: 12/06/17 08:44 Dose: 25 mg Pantoprazole Sodium (Protonix Ec Tab) 40 mg PO DAILY [facility] Last Admin: 12/06/17 08:46 Dose: 40 mg - Labs Labs: 11/24/17 05:20 11/24/17 05:20 PT 11.0 Seconds (9.8-13.1) 11/24/17 05:20 INR 1.0 11/24/17 05:20 - Constitutional Appears: No Acute Distress - Head Exam Head Exam: NORMAL INSPECTION - Neurological Exam Neurological Exam: Alert, Awake, Oriented x3 Neuro motor strength exam: Left Upper Extremity: 4, Right Upper Extremity: 4, Left Lower Extremity: 4, Right Lower Extremity: 4 Additional comments: neurological unchanged from previous examination. Assessment and Plan (1) Ischemic stroke Assessment & Plan: Continue all current medical, physical, occupational, and speech therapies. Recommend hydration, blood pressure control, and follow up with Dr. Linares or any neurology in [place] upon discharge. Status: Acute
--- NOTE | 2017-12-06 14:10 | CP.PCM.PN ---
Subjective - Date & Time of Evaluation Date of Evaluation: 12/04/17 Time of Evaluation: 12:30 - Subjective Subjective: no acute complaints of neck or back pain Objective - Vital Signs/Intake and Output Vital Signs (last 24 hours): Temp Pulse Resp BP Pulse Ox 96.6 F L 57 L 20 114/59 L 97 12/06/17 07:52 12/06/17 08:44 12/06/17 07:52 12/06/17 08:45 12/06/17 07:52 - Medications Medications: Current Medications Acetaminophen (Tylenol 325mg Tab) 650 mg PO Q6 PRN PRN Reason: pain scale 1-10 Aspirin (Ecotrin) 325 mg PO DAILY [facility] Last Admin: 12/06/17 08:47 Dose: 325 mg Atorvastatin Calcium (Lipitor) 20 mg PO HS [facility] Last Admin: 12/05/17 21:08 Dose: 20 mg Brimonidine Tartrate (Alphagan 0.2% Opht) 1 drop OU Q8 [facility] Last Admin: 12/06/17 06:11 Dose: 1 drop Clopidogrel Bisulfate (Plavix) 75 mg PO DAILY [facility] Last Admin: 12/06/17 08:46 Dose: 75 mg Furosemide (Lasix) 20 mg PO DAILY [facility] Last Admin: 12/06/17 08:45 Dose: 20 mg Home Med (Netarsudil Mesylate [Rhopressa]) 1 drop OS DAILY [facility] Last Admin: 12/06/17 08:49 Dose: 1 drop Home Med (Mesalamine [Lialda]) 1.2 gm PO BRK [facility] Last Admin: 12/06/17 08:47 Dose: 1.2 gm Isosorbide Dinitrate (Isordil) 30 mg PO DAILY [facility] Last Admin: 12/06/17 08:46 Dose: 30 mg Latanoprost (Xalatan Opht) 1 drop OS HS [facility] Last Admin: 12/05/17 21:11 Dose: 1 drop Metoprolol Tartrate (Lopressor) 25 mg PO Q12 [facility] Last Admin: 12/06/17 08:44 Dose: 25 mg Pantoprazole Sodium (Protonix Ec Tab) 40 mg PO DAILY [facility] Last Admin: 12/06/17 08:46 Dose: 40 mg - Labs Labs: 11/24/17 05:20 11/24/17 05:20 PT 11.0 Seconds (9.8-13.1) 11/24/17 05:20 INR 1.0 11/24/17 05:20 - Head Exam Head Exam: ATRAUMATIC, NORMAL INSPECTION, NORMOCEPHALIC - Eye Exam Eye Exam: EOMI, Normal appearance, PERRL Pupil Exam: NORMAL ACCOMODATION - ENT Exam ENT Exam: Mucous Membranes Moist, Normal Exam - Neck Exam Neck Exam: Normal Inspection - Respiratory Exam Respiratory Exam: Clear to Ausculation Bilateral, NORMAL BREATHING PATTERN - Cardiovascular Exam Cardiovascular Exam: REGULAR RHYTHM - GI/Abdominal Exam GI & Abdominal Exam: Soft, Normal Bowel Sounds - Rectal Exam Rectal Exam: NORMAL INSPECTION - Exam External exam: NORMAL EXTERNAL EXAM - Extremities Exam Extremities Exam: Full ROM, Normal Capillary Refill, Normal Inspection - Back Exam Back Exam: NORMAL INSPECTION - Neurological Exam Neurological Exam: Alert, Awake Neuro motor strength exam: Left Upper Extremity: 3, Right Upper Extremity: 3, Left Lower Extremity: 3, Right Lower Extremity: 3 - Psychiatric Exam Psychiatric exam: Normal Affect, Normal Mood - Skin Skin Exam: Dry, Intact, Normal Color Assessment and Plan (1) Ischemic stroke Assessment & Plan: plan for physical, occupational, rec therapy plan for range of motion, strengthening transfers and gait training Status: Acute (2) Newly diagnosed diabetes Status: Chronic (3) TIA (transient ischemic attack) Status: Acute
--- NOTE | 2017-12-06 14:13 | CP.PCM.PN ---
Subjective - Date & Time of Evaluation Date of Evaluation: 12/06/17 Time of Evaluation: 14:00 - Subjective Subjective: no acute complaints of neck or back pain Objective - Vital Signs/Intake and Output Vital Signs (last 24 hours): Temp Pulse Resp BP Pulse Ox 96.6 F L 57 L 20 114/59 L 97 12/06/17 07:52 12/06/17 08:44 12/06/17 07:52 12/06/17 08:45 12/06/17 07:52 - Medications Medications: Current Medications Acetaminophen (Tylenol 325mg Tab) 650 mg PO Q6 PRN PRN Reason: pain scale 1-10 Aspirin (Ecotrin) 325 mg PO DAILY [facility] Last Admin: 12/06/17 08:47 Dose: 325 mg Atorvastatin Calcium (Lipitor) 20 mg PO HS [facility] Last Admin: 12/05/17 21:08 Dose: 20 mg Brimonidine Tartrate (Alphagan 0.2% Opht) 1 drop OU Q8 [facility] Last Admin: 12/06/17 06:11 Dose: 1 drop Clopidogrel Bisulfate (Plavix) 75 mg PO DAILY [facility] Last Admin: 12/06/17 08:46 Dose: 75 mg Furosemide (Lasix) 20 mg PO DAILY [facility] Last Admin: 12/06/17 08:45 Dose: 20 mg Home Med (Netarsudil Mesylate [Rhopressa]) 1 drop OS DAILY [facility] Last Admin: 12/06/17 08:49 Dose: 1 drop Home Med (Mesalamine [Lialda]) 1.2 gm PO BRK [facility] Last Admin: 12/06/17 08:47 Dose: 1.2 gm Isosorbide Dinitrate (Isordil) 30 mg PO DAILY [facility] Last Admin: 12/06/17 08:46 Dose: 30 mg Latanoprost (Xalatan Opht) 1 drop OS HS [facility] Last Admin: 12/05/17 21:11 Dose: 1 drop Metoprolol Tartrate (Lopressor) 25 mg PO Q12 [facility] Last Admin: 12/06/17 08:44 Dose: 25 mg Pantoprazole Sodium (Protonix Ec Tab) 40 mg PO DAILY [facility] Last Admin: 12/06/17 08:46 Dose: 40 mg - Labs Labs: 11/24/17 05:20 11/24/17 05:20 PT 11.0 Seconds (9.8-13.1) 11/24/17 05:20 INR 1.0 11/24/17 05:20 - Head Exam Head Exam: ATRAUMATIC, NORMAL INSPECTION, NORMOCEPHALIC - Eye Exam Eye Exam: EOMI, Normal appearance, PERRL Pupil Exam: NORMAL ACCOMODATION, PERRL - ENT Exam ENT Exam: Mucous Membranes Moist, Normal Exam - Neck Exam Neck Exam: Full ROM, Normal Inspection - Respiratory Exam Respiratory Exam: Clear to Ausculation Bilateral, NORMAL BREATHING PATTERN - Cardiovascular Exam Cardiovascular Exam: REGULAR RHYTHM - GI/Abdominal Exam GI & Abdominal Exam: Soft, Normal Bowel Sounds - Rectal Exam Rectal Exam: NORMAL INSPECTION - Exam External exam: NORMAL EXTERNAL EXAM - Extremities Exam Extremities Exam: Full ROM, Normal Capillary Refill - Back Exam Back Exam: NORMAL INSPECTION - Neurological Exam Neurological Exam: Alert, Awake Neuro motor strength exam: Left Upper Extremity: 3, Right Upper Extremity: 3, Left Lower Extremity: 3 - Psychiatric Exam Psychiatric exam: Normal Affect, Normal Mood - Skin Skin Exam: Dry, Intact, Normal Color Assessment and Plan (1) Ischemic stroke Assessment & Plan: plan for strengthening, DC planning, home Pt, Ot therapy then follow up with PMD Status: Acute (2) Newly diagnosed diabetes Status: Chronic (3) TIA (transient ischemic attack) Status: Acute
[2017-12-06] MEDS: Latanoprost 0.005% Opht SOUTION OS SCH (22:01)
[2017-12-07] MEDS: Brimonidine 0.2% 50 DROP/5 ML BOTTLE OU SCH ×3 (06:15→21:23)
[2017-12-07] MEDS: Pantoprazole 40 mg EC Tab PO SCH (08:16)
[2017-12-07] MEDS: MESALAMINE 1.2 GM PO SCH (08:17)
[2017-12-07] MEDS: NETARSUDIL MESYLATE OS SCH (08:17)
[2017-12-07] MEDS: Aspirin 325 mg EC Tablets PO SCH (08:18)
[2017-12-07 20:13] VITALS: RESP 20
[2017-12-07] MEDS: Latanoprost 0.005% Opht SOUTION OS SCH (22:12)
[2017-12-08] MEDS: Brimonidine 0.2% 50 DROP/5 ML BOTTLE OU SCH (06:13)
[2017-12-08] MEDS: Pantoprazole 40 mg EC Tab PO SCH (08:26)
[2017-12-08] MEDS: Aspirin 325 mg EC Tablets PO SCH (08:26)
[2017-12-08 08:27] VITALS: PULSE 81
[2017-12-08] MEDS: MESALAMINE 1.2 GM PO SCH (08:27)
[2017-12-08] MEDS: NETARSUDIL MESYLATE OS SCH (08:27)
[2017-12-08 08:30] VITALS: BP 131/72; TEMP 98.4; O2SAT 97
--- NOTE | 2017-12-08 09:18 | CP.PCM.PN ---
Subjective - Date & Time of Evaluation Date of Evaluation: 12/08/17 Time of Evaluation: :18 - Subjective Subjective: Ms. Prather was seen and examined at the bedside. She remains alert, oriented in all spheres. She denies any headache, dizziness, improving clarity of speech. She is able to participate majority of her ADL's such as feeding herself, brushing herself. She is excited to go home today. There was no untoward events overnight. Objective - Vital Signs/Intake and Output Vital Signs (last 24 hours): Temp Pulse Resp BP Pulse Ox 98.4 F 81 20 131/72 97 12/08/17 08:29 12/08/17 08:29 12/08/17 08:29 12/08/17 08:12/08/17 08:29 - Medications Medications: Current Medications Acetaminophen (Tylenol 325mg Tab) 650 mg PO Q6 PRN PRN Reason: pain scale 1-10 Aspirin (Ecotrin) 325 mg PO DAILY [facility] Last Admin: 12/08/17 08:26 Dose: 325 mg Atorvastatin Calcium (Lipitor) 20 mg PO HS [facility] Last Admin: 12/07/17 21:22 Dose: 20 mg Brimonidine Tartrate (Alphagan 0.2% Opht) 1 drop OU Q8 [facility] Last Admin: 12/08/17 06:13 Dose: 1 drop Clopidogrel Bisulfate (Plavix) 75 mg PO DAILY [facility] Last Admin: 12/08/17 08:26 Dose: 75 mg Furosemide (Lasix) 20 mg PO DAILY [facility] Last Admin: 12/08/17 08:28 Dose: Not Given Home Med (Netarsudil Mesylate [Rhopressa]) 1 drop OS DAILY [facility] Last Admin: 12/08/17 08:27 Dose: 1 drop Home Med (Mesalamine [Lialda]) 1.2 gm PO BRK [facility] Last Admin: 12/08/17 08:27 Dose: 1.2 gm Isosorbide Dinitrate (Isordil) 30 mg PO DAILY [facility] Last Admin: 12/08/17 08:27 Dose: 30 mg Latanoprost (Xalatan Opht) 1 drop OS HS [facility] Last Admin: 12/07/17 22:12 Dose: 1 drop Metoprolol Tartrate (Lopressor) 25 mg PO Q12 [facility] Last Admin: 12/08/17 08:26 Dose: 25 mg Pantoprazole Sodium (Protonix Ec Tab) 40 mg PO DAILY [facility] Last Admin: 12/08/17 08:26 Dose: 40 mg - Labs Labs: 11/24/17 05:20 11/24/17 05:20 PT 11.0 Seconds (9.8-13.1) 11/24/17 05:20 INR 1.0 11/24/17 05:20 - Constitutional Appears: No Acute Distress - Head Exam Head Exam: NORMAL INSPECTION - Neurological Exam Neurological Exam: Alert, Awake, Oriented x3 Neuro motor strength exam: Left Upper Extremity: 4, Right Upper Extremity: 4, Left Lower Extremity: 4, Right Lower Extremity: 4 Additional comments: neurological unchanged from previous examination. Assessment and Plan (1) Ischemic stroke Assessment & Plan: Continue all current medical, physical, occupational, and speech therapies. Recommend hydration, blood pressure control, and follow up with Dr. Linares or any neurology in [place] upon discharge. Status: Acute
--- NOTE | 2017-12-08 13:57 | CP.PCM.PN ---
Subjective - Date & Time of Evaluation Date of Evaluation: 12/08/17 Time of Evaluation: 09:00 - Subjective Subjective: no acute complaints at present Objective - Vital Signs/Intake and Output Vital Signs (last 24 hours): Temp Pulse Resp BP Pulse Ox 98.4 F 81 20 131/72 97 12/08/17 08:29 12/08/17 08:29 12/08/17 08:29 12/08/17 08:29 12/08/17 08:29 - Medications Medications: Current Medications Acetaminophen (Tylenol 325mg Tab) 650 mg PO Q6 PRN PRN Reason: pain scale 1-10 Aspirin (Ecotrin) 325 mg PO DAILY [facility] Last Admin: 12/08/17 08:26 Dose: 325 mg Atorvastatin Calcium (Lipitor) 20 mg PO HS [facility] Last Admin: 12/07/17 21:22 Dose: 20 mg Brimonidine Tartrate (Alphagan 0.2% Opht) 1 drop OU Q8 [facility] Last Admin: 12/08/17 06:13 Dose: 1 drop Clopidogrel Bisulfate (Plavix) 75 mg PO DAILY [facility] Last Admin: 12/08/17 08:26 Dose: 75 mg Furosemide (Lasix) 20 mg PO DAILY [facility] Last Admin: 12/08/17 08:28 Dose: Not Given Home Med (Netarsudil Mesylate [Rhopressa]) 1 drop OS DAILY [facility] Last Admin: 12/08/17 08:27 Dose: 1 drop Home Med (Mesalamine [Lialda]) 1.2 gm PO BRK [facility] Last Admin: 12/08/17 08:27 Dose: 1.2 gm Isosorbide Dinitrate (Isordil) 30 mg PO DAILY [facility] Last Admin: 12/08/17 08:27 Dose: 30 mg Latanoprost (Xalatan Opht) 1 drop OS HS [facility] Last Admin: 12/07/17 22:12 Dose: 1 drop Metoprolol Tartrate (Lopressor) 25 mg PO Q12 [facility] Last Admin: 12/08/17 08:26 Dose: 25 mg Pantoprazole Sodium (Protonix Ec Tab) 40 mg PO DAILY [facility] Last Admin: 12/08/17 08:26 Dose: 40 mg - Labs Labs: 11/24/17 05:20 11/24/17 05:20 PT 11.0 Seconds (9.8-13.1) 11/24/17 05:20 INR 1.0 11/24/17 05:20 - Head Exam Head Exam: ATRAUMATIC, NORMAL INSPECTION, NORMOCEPHALIC - Eye Exam Eye Exam: EOMI, Normal appearance, PERRL Pupil Exam: NORMAL ACCOMODATION - ENT Exam ENT Exam: Mucous Membranes Moist, Normal Exam - Neck Exam Neck Exam: Normal Inspection - Respiratory Exam Respiratory Exam: Clear to Ausculation Bilateral, NORMAL BREATHING PATTERN - Cardiovascular Exam Cardiovascular Exam: REGULAR RHYTHM - GI/Abdominal Exam GI & Abdominal Exam: Soft, Normal Bowel Sounds - Rectal Exam Rectal Exam: NORMAL INSPECTION - Exam External exam: NORMAL EXTERNAL EXAM - Extremities Exam Extremities Exam: Full ROM, Normal Capillary Refill - Back Exam Back Exam: NORMAL INSPECTION - Neurological Exam Neurological Exam: Alert, Awake Neuro motor strength exam: Left Upper Extremity: 3, Right Upper Extremity: 3, Left Lower Extremity: 3, Right Lower Extremity: 3 - Psychiatric Exam Psychiatric exam: Normal Affect, Normal Mood - Skin Skin Exam: Dry, Normal Color Assessment and Plan (1) Ischemic stroke Assessment & Plan: plan fo rphysical, occupational therapy, rec therapy Dc for today discussed Dc planning with patient Status: Acute (2) Newly diagnosed diabetes Status: Chronic (3) TIA (transient ischemic attack) Status: Acute
== END 2017-12-08 13:10 | disposition home or self-care (01) | DRG 57 ==
PROVIDERS: ADMIT Family Medicine; ATTEND Family Medicine
PROC: 0HBRXZZ Excision of Toe Nail, External Approach (ICD-10-PCS; 2017-11-24)
PROC: F07Z9FZ Gait Training/Functional Ambulation Treatment using Assistive, Adaptive, Supportive or Protective Equipment (ICD-10-PCS; principal; 2017-11-25)
PROC: F08Z1ZZ Dressing Techniques Treatment (ICD-10-PCS; 2017-11-25)
PROC: F08Z4FZ Home Management Treatment using Assistive, Adaptive, Supportive or Protective Equipment (ICD-10-PCS; 2017-11-25)
PROC: F08Z0ZZ Bathing/Showering Techniques Treatment (ICD-10-PCS; 2017-11-25)
PROC: F06Z6ZZ Communicative/Cognitive Integration Skills Treatment (ICD-10-PCS; 2017-11-25)
DX: I69.351 Hemiplegia and hemiparesis following cerebral infarction affecting right dominant side (principal); I69.328 Other speech and language deficits following cerebral infarction; E11.9 Type 2 diabetes mellitus without complications; E78.5 Hyperlipidemia, unspecified; I10 Essential (primary) hypertension; I25.10 Atherosclerotic heart disease of native coronary artery without angina pectoris; I25.2 Old myocardial infarction; I25.5 Ischemic cardiomyopathy; Z79.02 Long term (current) use of antithrombotics/antiplatelets; Z79.82 Long term (current) use of aspirin; Z79.899 Other long term (current) drug therapy; Z85.3 Personal history of malignant neoplasm of breast; L60.8 Other nail disorders; Z87.891 Personal history of nicotine dependence; Z95.5 Presence of coronary angioplasty implant and graft